=== PATIENT | female | born 1960 | race Caucasian/White ===

== ENCOUNTER 2019-03-18 17:12 | Emergency (ER) | payer OTHER, SELFPAY ==
[2019-03-18 17:51] VITALS: BP 139/60; PULSE 51; RESP 20; TEMP 36.8; O2SAT 99
--- NOTE | 2019-03-18 17:58 | ED.URI ---
HPI - URI/Sore Throat General Chief Complaint: Upper Respiratory Infection Stated Complaint: sore throat/sinus/ear pn Time Seen by Provider: 03/18/19 17:58 Source: patient and RN notes reviewed History of Present Illness HPI Narrative: Patient is a 58-year-old female presents the urgent care with complaints of sinus pressure, congestion for 3 to 4 weeks and bilateral ear pain and sore throat that started last night. Patient has not used anything recently for her symptoms. States that they initially got better and then started to get worse within the last couple days. Patient denies any fever, chills, nausea, vomiting. No other acute complaints. No acute distress noted. Patient read the plan of care. Related Data Home Medications Medication Instructions Recorded Confirmed thyroid (pork) [[place] Thyroid] 90 mg PO DAILY 03/18/19 03/18/19 Allergies Allergy/AdvReac Type Severity Reaction Status Date / Time No Known Allergies Allergy Verified 03/18/19 17:50 Review of Systems Review of Systems: Narrative: CONSTITUTIONAL: Denies fever, chills, or sweats. EYES: Denies visual changes, redness, or discharge. ENT: Reports of rhinorrhea, sinus congestion, mild sore throat and bilateral otalgia CARDIOVASCULAR: Denies chest pain, palpitations, or edema. RESPIRATORY: Denies cough or dyspnea. GASTROINTESTINAL: Denies abdominal pain, nausea, vomiting, or diarrhea. GENITOURINARY: Denies dysuria or hematuria. SKIN: Denies rash or itching. MUSCULOSKELETAL: Denies back pain, joint pain, or myalgia. NEUROLOGIC: Denies headache, numbness, or weakness. All other systems reviewed are negative, except as documented in HPI. [facility] Past Medical History Medical History (Updated 03/18/19 @ 18:20 by SIMI Salas) Larry's disease History of vaginal delivery x 2 Thyroid disease Surgical History Surgical History (Updated 03/12/19 @ 08:08 by Nirali Verdin CMA) History of tonsillectomy History of vaginal hysterectomy [place] teeth removed Family History Family History (Updated 07/24/16 @ 14:32 by DOCTOR UNKNOWN) Father Family history of lung cancer Mother Family history of malignant neoplasm of breast Social History Social History Smoking status: Former smoker Second hand tobacco smoke exposure: No Alcohol intake: current Comments At the time of my signature, I reviewed and agree with the nursing past medical, surgical, social, and family history. There is no relevant family history pertinent to the patient complaint. Exam Narrative: Exam Narrative: GENERAL: This is a well-nourished, well-developed patient, in no apparent distress. HEAD: normocephalic, atraumatic. EYES: PERRL. Sclera clear/white. Vision is grossly intact. EARS: External ears normal, auditory canals clear and without drainage, moderate fluid noted behind bilateral TMs without otitis, TMs normal without perforation. Hearing grossly intact. NOSE: External nose normal with no obvious nasal discharge, mild erythema noted bilateral nares with clear rhinorrhea. THROAT: Mucous membranes moist, posterior pharynx clear. Mild postnasal drainage NECK: Neck supple, non-tender without lymphadenopathy, masses or thyromegaly. CARDIOVASCULAR: Regular rate and rhythm without murmurs, gallops, or rubs. RESPIRATORY: Clear to auscultation. Breath sounds equal bilaterally. No wheezes, rales, or rhonchi. SKIN: warm, intact with no suspicious lesions or rash, good texture and turgor. NEURO: awake, alert, and oriented to person, place and time. There were no obvious focal neurologic abnormalities. EXTREMITIES: No clubbing, cyanosis, or edema. Course Vital Signs Vital signs: Vital Signs Temperature 98.3 F 03/18/19 17:51 Pulse Rate 51 L 03/18/19 17:51 Respiratory Rate 20 03/18/19 17:51 Blood Pressure 139/60 03/18/19 17:51 Pulse Oximetry 99 03/18/19 17:51 Temperature 98.3 F 03/18/19 17:51 Pulse Rate 51 L 03/18/19 17:51 Respi
== END 2019-03-18 18:29 | disposition home or self-care (01) ==
PROVIDERS: Emergency Provider Nurse Practitioner Family
DX: J06.9 Acute upper respiratory infection, unspecified (principal); J32.9 Chronic sinusitis, unspecified; E06.3 Autoimmune thyroiditis
CPT/HCPCS: 99213; G0463

== ENCOUNTER 2019-03-23 10:22 | Emergency (ER) | payer OTHER, SELFPAY ==
[2019-03-23 10:53] VITALS: BP 146/61; PULSE 55; RESP 20; TEMP 37.3; O2SAT 98
--- NOTE | 2019-03-23 11:17 | ED.URI ---
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 Pt states that she has not been feeling well for about 1 month. Pt was seen at on Sunday (5 days ago) for the same complaints and was prescribed Prednisone. Pt refused to have any tests done at the time. She reports a right earache, sinus congestion, and a productive cough, but denies a fever and a wheeze. The patient has been informed that they may have pre-hypertension or Hypertension based on a BP reading in the department. I recommend that the patient call the primary care provider listed on their discharge instructions or a physician of their choice this week to arrange follow up for further evaluation of possible pre-hypertension or Hypertension Onset (ago): month(s) (1) Related Data Home Medications Medication Instructions Recorded Confirmed thyroid (pork) [[place] Thyroid] 90 mg PO DAILY 03/18/19 03/23/19 Allergies Allergy/AdvReac Type Severity Reaction Status Date / Time No Known Allergies Allergy Verified 03/23/19 11:04 Review of Systems Review of Systems: Narrative: General/Constitutional: Denies: weight loss,fever Eyes: Denies: Redness,discharge Ears/Nose/Throat: Reports: sore throat, right earache, sinus congestion; Denies: Epistaxis,ear discharge Respiratory: Reports: productive cough; Denies: Hemoptysis, wheeze Gastrointestinal: Denies: Vomiting, Bleeding-rectal Skin: Denies: Lumps, eruption Neurologic: Denies: Focal Weakness,Sz Hematologic: Denies: Petechiae/Purpura Psychiatric: Denies: Suicidal ideation All systems reviewed & are unremarkable except as noted in HPI and below PMFSH Past Medical History Medical History Larry's disease History of vaginal delivery x 2 Thyroid disease Surgical History Surgical History History of tonsillectomy History of vaginal hysterectomy [place] teeth removed Family History Family History Father Family history of lung cancer Mother Family history of malignant neoplasm of breast Social History Social History Smoking status: Former smoker Second hand tobacco smoke exposure: No Alcohol intake: current Comments No PCP on file. At time of signature, agree with nursing past medical, surgical, social and family history. There is no relevant family history pertinent to the presenting complaint Exam Narrative: Exam Narrative: General Appearance: Well appearing, Well nourished EYE: PERRLA, Conjunctiva clear Ears: Auditory canal normal, TM normal Nose: Rhinorrhea, Mucousal erythema Mouth/Throat: MM moist, Uvula midline, Pharyngeal erythema Neck: Supple, No adenopathy Respiratory: No respiratory distress, Breath sounds equal, Clear to auscultation Cardiovascular: RRR, No JVD Musculoskeletal: Non tender, Normal strength Skin: Warm, Dry Neurological: A&O x3, CN II-XII intact Psychiatric: Normal mood, Normal affect Course Vital Signs Vital signs: Vital Signs Temperature 99.1 F 03/23/19 10:53 Pulse Rate 55 L 03/23/19 10:53 Respiratory Rate 03/23/19 10:53 Blood Pressure 146/61 H 03/23/19 10:53 Pulse Oximetry 98 03/23/19 10:53 Temperature 99.1 F 03/23/19 10:53 Pulse Rate 55 L 03/23/19 10:53 Respiratory Rate 03/23/19 10:53 Blood Pressure 146/61 H 03/23/19 10:53 Pulse Oximetry 98 03/23/19 10:53 MDM - URI/Sore Throat Lab Data Labs: Influenza A Screen Negative Reference Range: Negative Influenza
== END 2019-03-23 11:52 | disposition home or self-care (01) ==
PROVIDERS: Emergency Provider Emergency Medicine
DX: J02.9 Acute pharyngitis, unspecified (principal); Z87.891 Personal history of nicotine dependence
CPT/HCPCS: 87804; 99213; G0463

== ENCOUNTER → 2019-05-03 09:17 | Outpatient (CLI) | payer OTHER, SELFPAY ==
--- NOTE | ~2019-05-03 | DEXA_ITS ---
Bone Density Report Name: Hazel Garcia Age: 58 Sex: Female Ethnicity: White Date of : 1960 Indication: monitoring treatment; prior fracture; hysterectomy; postmenopausal Referring Provider: Soraida Herrera Study: Bone densitometry was performed. Exam Date: May 03, 2019 Accession number: [id number] Bone Density: Region BMD T-score Z-score Classification AP Spine (L1-L4) 1.075 0.3 1.5 Normal Femoral Neck (Left) 0.872 0.2 1.4 Normal Total Hip (Left) 0.944 0.0 0.8 Normal Femoral Neck (Right) 0.941 0.8 2.0 Normal Total Hip (Right) 0.960 0.1 1.0 Normal Total Hip Mean 0.952 0.1 0.9 Normal World Health Organization criteria for BMD impression classify patients as: Normal (T-score at or above -1.0), Osteopenia (T-score between -1.0 and -2.5), or Osteoporosis (T-score at or below -2.5). 10-year Fracture Risk: FRAX not reported because: All T-scores for Spine Total, Hip Total, Femoral Neck at or above -1.0 Treated for osteoporosis Previous Exams: Region Exam Age BMD T-score BMD Change BMD Change Date g/cm2 vs Baseline vs Previous AP Spine(L1-L4) 05/03/2019 58 1.075 0.3 0.014 -0.018 11/11/2016 56 1.094 0.4 0.033* 0.055* 01/23/2014 53 1.039 -0.1 -0.023 -0.023 11/07/2011 51 1.061 0.1 Total Hip(Left) 05/03/2019 58 0.944 0.0 0.017 -0.015 11/11/2016 56 0.959 0.1 0.032* 0.026 01/23/2014 53 0.933 -0.1 0.006 0.006 11/07/2011 51 0.927 -0.1 Total Hip(Right) 05/03/2019 58 0.960 0.1 0.015 -0.012 11/11/2016 56 0.972 0.2 0.027 0.008 01/23/2014 53 0.964 0.2 0.019 0.019 11/07/2011 51 0.945 0.0 *Denotes significance at 95% confidence level, LSC for AP Spine = 0.022 g/cm2, LSC for Total Hip = 0.027 g/cm2 Clinical Information Provided by Patient: Has had a low trauma fracture Is being treated for osteoporosis Has used the following medications: HRT (i.e. estrogen/hormone therapy), Vitamin D, Calcium, mtv Has the following medical conditions: Hysterectomy Patient maximum height was 63.25 Menopause Age: 45 Onset of menses at age 13 Number of children 2 Impression: The patient has normal bone mass. The patient has risk factors, including: previous fracture. No significant bone loss was observed. Discussion: PATIENT UNDER
--- NOTE | ~2019-05-03 | MM_ITS ---
EXAMINATION: MM screening carlos BI w [facility]erson HISTORY: Screening mammogram TECHNIQUE: Craniocaudal and mediolateral oblique 3-D tomosynthesis images were obtained and synthetic 2-D images were generated. CAD analysis was submitted and interpreted. COMPARISON: No prior mammogram is available for comparison at this institution. BREAST PARENCHYMAL COMPOSITION: There are scattered areas of fibroglandular density. FINDINGS: There is stable mild fibroglandular asymmetry. There is no evidence of suspicious mass, c alcification, or architectural distortion to suggest malignancy in either breast. There has been no s uspicious interval change. IMPRESSION: 1. No mammographic evidence of malignancy. 2. Recommend routine screening mammography in one year. BI-RADS Category 2: Benign finding(s). Reviewed, dictated and finalized at location A.
== END ==
PROVIDERS: Visit Provider Student in an Organized Health Care Education/Training Program
DX: Z12.31 Encounter for screening mammogram for malignant neoplasm of breast (principal); Z78.0 Asymptomatic menopausal state
CPT/HCPCS: 77063; 77067; 77080

== ENCOUNTER 2021-04-01 17:12 | Emergency (ER) | payer OTHER, SELFPAY ==
--- NOTE | ~2021-04-01 | XR_ITS ---
EXAMINATION: XR toe 2nd LT min 2V EXAM DATE: 04/01/2021 17:41 INDICATION: Injured left 2nd toe while exercising today. TECHNIQUE: Left 2nd toe frontal, lateral and oblique projections obtained and reviewed. There is n o prior study for comparison. FINDINGS: There is dorsal dislocation of the left 2nd proximal phalanx. There are no acute fractures identified. No radiopaque foreign bodies identified. IMPRESSION: Dorsally dislocated left 2nd proximal phalanx. Reviewed, dictated and finalized at location G. S MARKER
--- NOTE | ~2021-04-01 | XR_ITS ---
EXAMINATION: XR toe 2nd LT min 2V EXAM DATE: 04/01/2021 18:17 INDICATION: post reduction left 2nd toe . TECHNIQUE: Left 2nd toe frontal, lateral and oblique projections obtained and reviewed. Comparison i s made to prior examination from earlier same date. FINDINGS: The left 2nd proximal phalanx has been reduced. There are no acute fractures identified. IMPRESSION: Status post left 2nd toe resection. Reviewed, dictated and finalized at location G. CAR SWITCHMAN
[2021-04-01 17:31] VITALS: BP 129/78; PULSE 62; RESP 18; TEMP 36.6; O2SAT 100
--- NOTE | 2021-04-01 17:58 | ED.GENADULT ---
HPI - General Adult General Chief complaint: Extremity Injury, Lower Stated complaint: lt foot injury Source: patient Mode of arrival: ambulatory Limitations: no limitations History of Present Illness HPI narrative: Patient is a 60-year-old female who presents to the [facility] via POV for evaluation of a left second toe injury that occurred just prior to arrival. Patient reports she was working out when she excellently misstepped causing deformity, decreased range of motion, pain, and swelling to left second toe. Denies using OTC meds for symptoms. Remaining still improves pain. movement and weightbearing worsens pain. Denies rest, ice, elevation, and compression therapy. Related Data Home Medications Medication Instructions Recorded Confirmed thyroid (pork) [[place] Thyroid] 90 mg PO DAILY 03/18/19 03/23/19 levothyroxine 75 mcg PO DAILY 04/01/21 04/01/21 Allergies Allergy/AdvReac Type Severity Reaction Status Date / Time No Known Allergies Allergy Verified 04/01/20 14:35 Review of Systems Review of Systems: Pertinent negatives: fever, chills, sweats, change in appetite, poor p.o. intake, malaise, calf tenderness, skin color changes, rash, warmth, numbness, tingling, loss of sensation, decreased range of motion, weakness, difficulty with ambulation/coordination, nausea, vomiting, lymphadenopathy, shortness of breath, chest pain, heart palpitations, and heart murmur. [facility] Past Medical History Medical History (Updated 04/01/21 @ 18:23 by SIMI Lea, BC) Larry's disease History of vaginal delivery x 2 Thyroid disease Surgical History Surgical History History of tonsillectomy History of vaginal hysterectomy [place] teeth removed Family History Family History Father Family history of lung cancer Mother Family history of malignant neoplasm of breast Social History Social History Smoking status: Former smoker Second hand tobacco smoke exposure: No Alcohol intake: current Comments Spinal stenosis, radiculopathy/sciatica,cauda equina syndrome, sacroiliac pathology, fracture, strain Exam Narrative: GENERAL: Well-appearing, well-nourished, and in no acute distress. HEAD: Normocephalic, atraumatic. NECK: Supple. No Lymphadenopathy or nuchal rigidity appreciated. CHEST: Bilateral lung alejandre are clear to auscultation. No respiratory distress. No evidence of cough or pleuritic cp upon examination. HEART: Regular rate and rhythm. No murmur, gallop, or rub heard. EXTREMITIES: No evidence of cyanosis, hematoma, laceration, abrasion, rash, or puncture. Moderate swelling and pain elicited with passive flexion and extension of left second toe. Left second toe also appears dislocated. No evidence of ligament laxity, effusion, or pain at rest. Pulses palpable at 2+, strength 5/5, and cap refill < 3 seconds in affected extremity. DTRs normal. Slowed gait. Ambulates with left-sided limp. SKIN: Warm, dry, no rash. NEURO: No focal deficits. Alert and oriented x3. SPECIAL OBSERVATIONS: Smiling. Laughing. No evidence of discomfort. Course Course Level of Care: Express Care Visit Vital Signs Vital signs: Vital Signs Temperature 97.9 F 04/01/21 17:31 Pulse Rate 62 04/01/21 17:31 Respiratory Rate 18 04/01/21 17:31 Blood Pressure 129/78 04/01/21 17:31 Pulse Oximetry 100 04/01/21 17:31 Temperature 97.9 F 04/01/21 17:31 Pulse Rate 62 04/01/21 17:31 Respiratory Rate 18 04/01/21 17:31 Blood Pressure 129/78 04/01/21 17:31 Pulse Oximetry 100 04/01/21 17:31 Reviewed Procedures Orthopedic Joint Reduction Joint #1: Orthopedic Joint Reduction Date: 04/01/21 Orthopedic Joint Reduction Time: 18:00 Time Out Performed: Yes Side: left Joint Reduction Loc
== END 2021-04-01 18:40 | disposition home or self-care (01) ==
PROVIDERS: Emergency Provider Nurse Practitioner Family
DX: S93.105A Unspecified dislocation of left toe(s), initial encounter (principal); X58.XXXA Exposure to other specified factors, initial encounter; Z87.891 Personal history of nicotine dependence; E06.3 Autoimmune thyroiditis
CPT/HCPCS: 28665; 73660; 99205; G0463

== ENCOUNTER 2021-05-03 13:45 | Emergency (ER) | payer OTHER, SELFPAY ==
--- NOTE | ~2021-05-03 | XR_ITS ---
EXAMINATION: XR toe 2nd LT min 2V DATE: 05/03/2021 14:40 INDICATION: Left second toe pain post prior dislocation TECHNIQUE: Dorsal plantar, lateral and 2 oblique views of the left second toe were obtained. COMPARISON: 04/01/2021 FINDINGS: Bone alignment is normal. No fracture. Mild osteoarthritis at the first metatarsophalangeal and many of the interphalangeal joints including the second proximal and distal interphalangeal joints. IMPRESSION: Mild polyarticular osteoarthritis at the first metatarsophalangeal and multiple interphalangeal joint s. No acute osseous abnormality. Reviewed, dictated and finalized at location A. IMPRESSION: Mild polyarticular osteoarthritis at the first metatarsophalangeal and multiple interphalangeal joints. No acute osseous abnormality.
[2021-05-03 14:15] VITALS: BP 113/54; PULSE 56; RESP 16; TEMP 36.6; O2SAT 99
--- NOTE | 2021-05-03 14:20 | ED.LOWEXIN ---
HPI - Extremity Injury (Lower) General Chief Complaint: Extremity Injury, Lower Stated Complaint: Lt Foot Pain Time Seen by Provider: 05/03/21 14:59 Source: patient and RN notes reviewed Mode of arrival: ambulatory Limitations: no limitations History of Present Illness HPI Narrative: 60-year-old female presents with concern for her toe that continues to slide out of place . Reports she had it reduced in this clinic approximately 1 month ago after she dislocated it. She reports she has been keeping it taped but occasionally when the tape is not on her toe will dislocate. She reports she manually reduces it. She reports she has reduced the toe this morning. She denies any decreased strength, sensation, range of motion in the digit currently. She denies any open skin, redness, warmth MD complaint: foot injury Related Data Home Medications Medication Instructions Recorded Confirmed thyroid (pork) [[place] Thyroid] 90 mg PO DAILY 03/18/19 05/03/21 levothyroxine 75 mcg PO DAILY 04/01/21 05/03/21 Allergies Allergy/AdvReac Type Severity Reaction Status Date / Time No Known Allergies Allergy Verified 05/03/21 14:26 Review of Systems Review of Systems: CONSTITUTIONAL: Denies malaise, chills, sweats, or fever. SKIN: Denies rash or itching, open skin, laceration, abrasion, redness, warmth, swelling. MUSCULOSKELETAL: Reports second toe of left foot that continues to dislocate NEUROLOGIC: Denies numbness, weakness All systems reviewed & are unremarkable except as noted in HPI and below PMFSH Past Medical History Medical History (Updated 05/03/21 @ 15:10 by Aishwarya Gaines NP) Larry's disease History of vaginal delivery x 2 Thyroid disease Surgical History Surgical History History of tonsillectomy History of vaginal hysterectomy [place] teeth removed Family History Family History Father Family history of lung cancer Mother Family history of malignant neoplasm of breast Social History Social History Smoking status: Former smoker Second hand tobacco smoke exposure: No Alcohol intake: current Comments At time of signature, agree with nursing past medical, surgical, social and family history. There is no relevant family history pertinent to the presenting complaint Exam Narrative: GENERAL: Well-appearing, well-nourished, and in no acute distress. HEAD: Normocephalic, atraumatic. EYES: PERRLA, conjunctivae clear NECK: Supple. CHEST: Speaks in full sentences. No respiratory distress. HEART: Regular rate and rhythm. Normal and equal peripheral pulses. EXTREMITIES: Left foot and all digits have normal strength and sensation, normal range of motion. No edema or ecchymosis. 5/5 strength with [xxx] flexion and extension. Normal sensation with sensitivity to light touch and pain. No point tenderness. No open wounds, no skin tenting, no devitalized tissue or atrophy, no trophic changes, no obvious deformity, alignment normal, nearby joints and structures intact. Distal pulses palpable and equal bilaterally, skin warm, dry, pink. Capillary refill less than 3 seconds. SKIN: Warm, dry, no rash. NEURO: Alert and oriented x3. PSYCH: Normal mood and affect Course Course Emergency Course: Discussed with patient that she can follow-up with her group burner machine regarding further treatment for this problem. Patient is aware of diagnosis, understands and agrees to treatment plan. Anticipatory guidance given. Patient agrees to follow-up as directed and is aware of reasons to seek care at the emergency department. Portions of this record may have been created with voice recognition software Level of Care: Express Care Visit Vital Signs Vital signs: Vital Signs Temperature 97.8 F 05/03/21 14:15 Pulse Rate 56 L 05/03/21 14:15 Respiratory R
== END 2021-05-03 15:15 | disposition home or self-care (01) ==
PROVIDERS: Emergency Provider Nurse Practitioner
DX: M79.675 Pain in left toe(s) (principal); Z87.898 Personal history of other specified conditions; E06.3 Autoimmune thyroiditis
CPT/HCPCS: 73660; 99213; G0463

== ENCOUNTER → 2021-05-30 07:54 | Outpatient (CLI) | payer OTHER, SELFPAY ==
--- NOTE | ~2021-05-30 | DEXA_ITS ---
Bone Density Report Name: TERESA PENN Age: 60 Sex: Female Ethnicity: White Date of : 1960 Indication: monitoring treatment; prior fracture; hysterectomy; postmenopausal Referring Provider: Soraida Herrera Study: Bone densitometry was performed. Exam Date: May 30, 2021 Accession number: [id number] Bone Density: Region BMD T-score Z-score Classification AP Spine (L1-L4) 1.073 0.2 1.6 Normal Femoral Neck (Left) 0.850 0.0 1.3 Normal Total Hip (Left) 0.957 0.1 1.1 Normal Femoral Neck (Right) 0.916 0.6 1.9 Normal Total Hip (Right) 0.951 0.1 1.0 Normal Total Hip Mean 0.954 0.1 1.1 Normal World Health Organization criteria for BMD impression classify patients as: Normal (T-score at or above -1.0), Osteopenia (T-score between -1.0 and -2.5), or Osteoporosis (T-score at or below -2.5). 10-year Fracture Risk: FRAX not reported because: All T-scores for Spine Total, Hip Total, Femoral Neck at or above -1.0 Treated for osteoporosis Previous Exams: Region Exam Age BMD T-score BMD Change BMD Change Date g/cm2 vs Baseline vs Previous AP Spine(L1-L4) 05/30/2021 60 1.073 0.2 0.012 -0.002 05/03/2019 58 1.075 0.3 0.014 -0.018 11/11/2016 56 1.094 0.4 0.033* 0.055* 01/23/2014 53 1.039 -0.1 -0.023 -0.023 11/07/2011 51 1.061 0.1 Total Hip(Left) 05/30/2021 60 0.957 0.1 0.029* 0.012 05/03/2019 58 0.944 0.0 0.017 -0.015 11/11/2016 56 0.959 0.1 0.032* 0.026 01/23/2014 53 0.933 -0.1 0.006 0.006 11/07/2011 51 0.927 -0.1 Total Hip(Right) 05/30/2021 60 0.951 0.1 0.006 -0.009 05/03/2019 58 0.960 0.1 0.015 -0.012 11/11/2016 56 0.972 0.2 0.027 0.008 01/23/2014 53 0.964 0.2 0.019 0.019 11/07/2011 51 0.945 0.0 *Denotes significance at 95% confidence level, LSC for AP Spine = 0.022 g/cm2, LSC for Total Hip = 0.027 g/cm2 Clinical Information Provided by Patient: Has had a low trauma fracture Is being treated for osteoporosis Has used the following medications: HRT (i.e. estrogen/hormone therapy), mtv Has the following medical conditions: Hysterectomy Patient maximum height was 62.25 Menopause Age: 45 Onset of menses at age 13 Number of children 2
== END ==
PROVIDERS: PCP Internal Medicine Endocrinology, Diabetes & Metabolism; Visit Provider Student in an Organized Health Care Education/Training Program
DX: Z78.0 Asymptomatic menopausal state (principal)
CPT/HCPCS: 77080

== ENCOUNTER → 2021-07-14 14:04 | Outpatient (CLI) | payer OTHER, SELFPAY ==
--- NOTE | ~2021-07-14 | MM_ITS ---
EXAMINATION: MM screening carlos BI w [facility] HISTORY: Screening mammogram TECHNIQUE: Craniocaudal and mediolateral oblique 3-D tomosynthesis images were obtained and synthetic 2-D images were generated. CAD analysis was submitted and interpreted. COMPARISON: 05/03/2019, 11/11/2016, 10/27/2015 bilateral screening mammogram examinations BREAST PARENCHYMAL COMPOSITION: There are scattered areas of fibroglandular density. FINDINGS: Stable fibroglandular asymmetry post bilateral reduction mammoplasty. There is no evidence of suspicious mass, calcification, or architectural distortion to suggest malignancy in either breast . There has been no suspicious interval change. IMPRESSION: 1. No mammographic evidence of malignancy. 2. Recommend routine screening mammography in one year. BI-RADS Category 2: Benign finding(s). Reviewed, dictated and finalized at location A.
== END ==
PROVIDERS: PCP Student in an Organized Health Care Education/Training Program; Visit Provider Student in an Organized Health Care Education/Training Program
DX: Z12.31 Encounter for screening mammogram for malignant neoplasm of breast (principal)
CPT/HCPCS: 77063; 77067

== ENCOUNTER 2022-02-18 11:52 | Emergency (ER) | payer OTHER, SELFPAY ==
[2022-02-18 12:18] VITALS: BP 122/78; PULSE 73; RESP 18; TEMP 36.7; O2SAT 98
--- NOTE | 2022-02-18 12:36 | ED.GENADULT ---
HPI - General Adult General Chief complaint: Upper Respiratory Infection Stated complaint: cold /flu symptoms Time Seen by Provider: 02/18/22 12:36 Source: patient Mode of arrival: ambulatory Limitations: no limitations History of Present Illness HPI narrative: 7-year-old female patient presents to the [facility] with complaints of cold and flu symptoms for the past week and a half. Patient states she has continues to have a scratchy throat, congestion, runny nose, headache. Denies any fevers, body aches or chills. Patient states she did test for COVID on but did test negative. Patient states she is up-to-date on influenza and COVID vaccines. Patient denies any chest pain, shortness of breath. Patient states she does have slight cough. Patient is a former smoker quit about 15 years ago. Patient states she has been taking whly-wka-lqndvyw [place] cold and flu to help with symptoms. Related Data Home Medications Medication Instructions Recorded Confirmed thyroid (pork) 60 mg tablet 90 mg PO DAILY 03/18/19 02/18/22 ([place] Thyroid) levothyroxine 75 mcg tablet 75 mcg PO DAILY 04/01/21 02/18/22 Allergies Allergy/AdvReac Type Severity Reaction Status Date / Time No Known Allergies Allergy Verified 02/18/22 12:23 Review of Systems Review of Systems: CONSTITUTIONAL: Denies fever, chills, or sweats. EYES: Denies visual changes, redness, or discharge. ENT: Positive rhinorrhea, congestion, sore throat, denies otalgia. CARDIOVASCULAR: Denies chest pain, palpitations, or edema. RESPIRATORY: positive cough denies dyspnea. GASTROINTESTINAL: Denies abdominal pain, nausea, vomiting, or diarrhea. GENITOURINARY: Denies dysuria or hematuria. SKIN: Denies rash or itching. MUSCULOSKELETAL: Denies back pain, joint pain, or myalgia. NEUROLOGIC: Denies headache, numbness, or weakness. PSYCHIATRIC: Denies anxiety or depression. [facility] Past Medical History Medical History (Updated 02/18/22 @ 12:57 by SIMI Maldonado) Larry's disease History of vaginal delivery x 2 Thyroid disease Surgical History Surgical History History of tonsillectomy History of vaginal hysterectomy [place] teeth removed Family History Family History Father Family history of lung cancer Mother Family history of malignant neoplasm of breast Social History Social History Smoking status: Former smoker Second hand tobacco smoke exposure: No Alcohol intake: current Comments At the time of my signature I agree with nursing past medical history, surgical, social, and family history. There is no relevant family history pertinent to the presenting complaint. Exam Narrative: GENERAL: Well-appearing, well-nourished, and in no acute distress. HEAD: Normocephalic, atraumatic. EYES: PERRLA and EOMI. ENT: Nares with erythema and edema noted bilaterally, no rhinorrhea or epistaxis. Mucous membranes moist. posterior pharynx with erythema. No tonsillar enlargement, no exudates or lesions present. Bilateral TMs are clear no erythema 4 by the canal NECK: Supple. slight right-sided lymphadenopathy CHEST: Clear to auscultation. No respiratory distress. HEART: Regular rate and rhythm. No murmur heard. Normal peripheral pulses. ABDOMEN: Soft, nontender, nondistended, normal active bowel sounds. EXTREMITIES: Normal range of motion. No edema. SKIN: Warm, dry, no rash. NEURO: No focal deficits. Alert and oriented x3. Course Course Level of Care: Express Care Visit Reevaluation(s) Reevaluation #1: re-evaluated patient notified her that her strep test today is negative. Discussed with patient most likely has a virus that has left some inflammation drainage. We go will go ahead and treat her symptomatically today and discharge her home with an albuterol inhaler, Marie
== END 2022-02-18 13:03 | disposition home or self-care (01) ==
PROVIDERS: Emergency Provider Nurse Practitioner Family; PCP Family Medicine
DX: J06.9 Acute upper respiratory infection, unspecified (principal); R05.9 Cough, unspecified; Z87.891 Personal history of nicotine dependence
CPT/HCPCS: 87081; 87880; 99213; G0463

== ENCOUNTER 2022-08-24 15:19 | Emergency (ER) | payer OTHER, SELFPAY ==
--- NOTE | ~2022-08-24 | XR_ITS ---
EXAMINATION: XR foot RT min 3V DATE: 08/24/2022 15:44 INDICATION: Lateral right foot pain. TECHNIQUE: 4 views of right foot were obtained. COMPARISON: Right ankle radiographs 12/21/2009 FINDINGS: There is moderate hallux valgus. No fracture. There is mild osteoarthritis of first metatar sophalangeal joint. There is an enthesophyte at posterior aspect of calcaneal tuberosity. IMPRESSION: 1. Moderate hallux valgus. 2. Mild osteoarthrosis of first metatarsophalangeal joint. Reviewed, dictated and finalized at location E.
[2022-08-24 15:29] VITALS: BP 123/73; PULSE 60; RESP 18; TEMP 36.4; O2SAT 98
--- NOTE | 2022-08-24 15:31 | ED.GENADULT ---
HPI - General Adult General Chief complaint: Extremity Injury, Lower Stated complaint: rt foot pain Time Seen by Provider: 08/24/22 15:31 Source: patient, RN notes reviewed and old records reviewed Mode of arrival: ambulatory Limitations: no limitations History of Present Illness HPI narrative: 62 Year old female presents to the [facility] with complaints of right lateral foot pain since Sunday Has taken Tylenol. Denies any injury. No erythema, ecchymosis or swelling noted. Related Data Home Medications Medication Instructions Recorded Confirmed thyroid (pork) 60 mg tablet 90 mg PO DAILY 03/18/19 08/24/22 ([place] Thyroid) levothyroxine 75 mcg tablet 75 mcg PO DAILY 04/01/21 08/24/22 Allergies Allergy/AdvReac Type Severity Reaction Status Date / Time No Known Allergies Allergy Verified 08/24/22 15:33 Review of Systems Review of Systems: All systems reviewed & are unremarkable except as noted in HPI and below Constitutional: Constitutional: Reports no additional constitutional complaints Eyes: Eyes: Reports no additional eye complaints ENT: Reports system reviewed and no additional complaints, except as documented Cardiovascular: Cardiovascular: Reports no additional cardiovascular complaints, Denies chest pain and Denies dyspnea Respiratory: Respiratory: Reports no additional respiratory complaints, Denies chest congestion, Denies cough and Denies dyspnea Gastrointestinal: Gastrointestinal: Reports no additional gastrointestinal complaints, Denies abdominal pain, Denies nausea and Denies vomiting Musculoskeletal: Musculoskeletal: Reports as per HPI Integumentary/Breasts: Skin/Breast: Reports system reviewed and no additional complaints, except as docu Neurologic: Reports system reviewed and no additional complaints, except as documented Psychiatric: Psychiatric: Reports no additional psychiatric complaints Allergic/Immunologic: Allergic/Immunologic: Reports no additional allergic/immunologic complaints [facility] Past Medical History Medical History Larry's disease History of vaginal delivery x 2 Thyroid disease Surgical History Surgical History H/O foot surgery History of tonsillectomy History of vaginal hysterectomy [place] teeth removed Family History Family History Father Family history of lung cancer Mother Family history of malignant neoplasm of breast Social History Social History (Reviewed 08/24/22 @ 19:09 by QUIANA Santana Smoking status: Former smoker Second hand tobacco smoke exposure: No Alcohol intake: current Lack of Transportation: No Lack of Food: Never True Current Housing: I Have Housing Concerned About Future Housing: No Difficulty Paying Gas/Electric Bills: No Difficulty Paying for Meds: No Currently Unemployed: No Education: Associate Degree Difficulty w/ Childcare or Family Care: No Comments At the time of my signature, I reviewed and agree with the nursing past medical, surgical, social, and family history. There is no relevant family history pertinent to the patient complaint. Exam Const: General: cooperative, healthy appearing, comfortable, no acute distress, well developed, alert and well nourished Nutritional Appearance: well nourished Orientation/consciousness: patient oriented x3 Limitations: no limitations HENMT: Head: normal to inspection Ears: hearing grossly normal bilaterally and external ears normal Face/Nose/Sinus: Normal external nose present, Normal nares present, Normal nasal mucous membranes and turbinates present and normal facial exam Face and sinus: normal facial exam Eyes: General: appearance normal, both eyes and all related structures Alignment and Position: alignment normal Periorbital: periorbital findings normal Pupils: Equal, round
== END 2022-08-24 16:00 | disposition home or self-care (01) ==
PROVIDERS: Emergency Provider Nurse Practitioner
DX: M79.671 Pain in right foot (principal); Z87.891 Personal history of nicotine dependence; E06.3 Autoimmune thyroiditis; E03.9 Hypothyroidism, unspecified
CPT/HCPCS: 73630; 99213; G0463

== ENCOUNTER 2024-07-18 07:56 | Outpatient (CLI) | payer OTHER, SELFPAY ==
--- NOTE | ~2024-07-18 | MM_ITS ---
EXAMINATION: MM screening [facility] BI w [facility] INDICATION: Asymptomatic, referred for screening mammogram COMPARISON: 07/14/2021 through 08/01/2014 TECHNIQUE: Digital Breast Tomosynthesis CC, MLO views of Both breasts were obtained with computer-ai ded detection to assist in interpretation of the study. FINDINGS: There are scattered areas of fibroglandular density. There is an asymmetry seen on the MLO view in the Inferior right breast at middle depth. There is a c ircumscribed mass seen in the inferior medial left breast at anterior depth. Elsewhere, there are no mammographic features of malignancy. IMPRESSION: 1. Right breast Asymmetry. 2. Left breast mass. RECOMMENDATION: Bilateral breast Diagnostic mammogram with true lateral, appropriate spot compression views and an ul trasound if needed. BI-RADS 0, INCOMPLETE, NEEDS ADDITIONAL IMAGING EVALUATION Reviewed, dictated and finalized at location B. IMPRESSION: 1. Right breast Asymmetry. 2. Left breast mass. RECOMMENDATION: Bilateral breast Diagnostic mammogram with true lateral, appropriate spot compr ession views and an ultrasound if needed. BI-RADS 0, INCOMPLETE, NEEDS ADDITIONAL IMAGING EVALUATION
--- OUTSIDE RECORDS SUMMARY | 2024-07-18 08:01 | XMS_ITS | Referral Summary ---
Author Organization [facility] [address] [place] [id number] Care Team Providers Care Occupational Health Professional Name Role Phone Do Duron MD Primary Care Provider [phone] Encounters Date Type Department Care Team Description 07/09/2024 Results Follow-Up [facility] [address] [address] Janette Contreras MD Vitamin D 25 hydroxy, TSH, Lipid panel 07/04/2024 Orders Only [facility] [address] [address] Janette Contreras MD 07/02/2024 3:00 PM CDT Office Visit [facility] [address] [address] Janette Contreras MD 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); Vitamin D deficiency from Last 3 Months Allergies No known active allergies Medications multivitamin tabletIndicatio ns:Vitamin Deficiency Prevention Take 1 tablet by mouth Active estradioL (ESTRACE) 2 mg tablet Take 1 tablet (2 mg total) by mouth daily 90 tablet 2 10/21/19 20 Active levothyroxine (SYNTHROID) 50 mcg tabletIndicatio ns: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 Take 1 tablet by mouth daily but 2 tablets on Sundays 100 tablet 3 07/11/19 25 Active thyroid ([place] Thyroid) 60 mg tabletIndicatio ns: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 Take 1 tablet (60 mg total) by mouth daily 90 tablet 3 07/11/19 25 Active acetaminophen (TYLENOL) 500 mg tablet Take 2 tablets (1,000 mg total) by mouth every 6 (six) hours as needed 025 Discontinued fluticasone propionate (FLONASE) 50 mcg/actuation nasal spray SHAKE LIQUID AND USE 1 SPRAY IN EACH NOSTRIL DAILY 02/18/19 025 Discontinued(Ot her) [place] Thyroid 60 mg tabletIndicatio ns: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 TAKE 1 TABLET DAILY 90 tablet 3 06/14/19 025 Discontinued(Re order) levothyroxine (SYNTHROID) 50 mcg tabletIndicatio ns: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 TAKE 1 TABLET DAILY 90 tablet 3 06/14/19 025 Discontinued(Re order) levothyroxine (SYNTHROID) 50 mcg tabletIndicatio ns: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 Take 1 tablet by mouth daily but 2 tablets on Sundays 100 tablet 3 07/10/19 025 Discontinued(Re order) thyroid ([place] Thyroid) 60 mg tabletIndicatio ns: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 Take 1 tablet (60 mg total) by mouth daily 90 tablet 3 07/10/19 025 Discontinued(Re order) Active Problems Problem Noted Date Diagnosed Date Sleep disturbance 07/05/2023 Assessment & Plan (07/05/2023 10:22 AM CDT): Sleep hygiene Relaxation, techniques , mediation , advised. 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 Assessment & Plan (07/05/2023 10:19 AM CDT): Probably overeplaced Update TFTs Adjust dose of armour / LT4 accordingly Assessment & Plan (04/27/2022 5:12 PM CDT): TSH was requested Will adjust dose of levothyroxine and or [place] thyroid accordingly Assessment & Plan (10/25/2021 3:43 PM CDT): Recheck TSH, free T4 and free T3 I emphasized to the patient the importance of taking her medication regularly Will make adjustment, if indicated Follow-up in in 6 months Assessment & Plan (10/26/2020 3:39 PM CDT): Thyroid function tests, including TSH and free T4 were requested Will adjust dose of [place], if indicated Assessment & Plan (10/21/2019 3:34 PM CDT): Continue [place] to current dose Check TSH Assessment & Plan (11/28/2018 3:00 PM CDT): Will check TSH and free T4 Will adjust dose of [place], acccordingly . If there is a need to make changes, will recheck levels in 2-3 months. Instructions to patient on taking medication properly Assessment & Plan (09/04/2017 9:41 AM CDT): Your goal of treatment is to keep TSH , T3 and T4 within normal range. . Will recheck thyroid function tests and will advised on adjustment to current dose of [place]. Assessment & Plan (08/21/2016 9:50 AM CDT): Check TSH, free T4 Will try [place] , as per patient request Recheck levels in 3 months. Postmenopausal 08/21/2016 Assessment & Plan (10/26/2020 3:39 PM CDT): Continue HRT with Estrace Patient needs to to schedule a mammogram Assessment & Plan (10/21/2019 3:35 PM CDT): Continue HRT Try to lower estradiol to 1 mg daily Assessment & Plan (08/21/2016 9:49 AM CDT): Will request bone density Hypothyroidism 06/28/2013 Overview (05/19/2016): HYPOTHYROIDISM NOS Assessment & Plan (04/08/2019 4:54 PM [employer] INCIDENT RESP[employer]DER): Check TFT Adjust dose of [place] accordingly Anemia 06/28/2013 Overview (05/19/2016): ANEMIA NOS Lymphocytic thyroiditis 06/28/2013 Overview (05/19/2016): CHR LYMPHOCYT THYROIDIT Metabolic bone disease 10/31/2011 Overview (05/19/2016): Bone disease, metabolic Resolved Problems Problem Noted Date Diagnosed Date Resolved Date Tobacco dependence syndrome 10/31/2011 09/04/2017 Overview (05/19/2016): Tobacco use disorder Social History Tobacco Use Types Packs/Day Years Used Date Smoking Tobacco: Former Smokeless Tobacco: Never Alcohol Use Standard Drinks/Week Comments Yes 0 (1 standard drink = 0.6 oz pur e alcohol) PHQ-2 Answer Date Recorded PHQ-2 Total Score (If total score is 3 or more points, staff should administer the PHQ-9) 0 10/25/2021 Comments Unknown Sex and Gender Information Value Date Recorded Sex Assigned at Not on file Legal Sex Female 3:05 AM [employer] Gender Identity Not on file Sexual Orientation Not on file Last Filed Vital Signs Vital Sign Reading Time Taken Comments Blood Pressure 102/60 07/02/2024 3:01 PM CDT Pulse 74 07/02/2024 3:01 PM CDT Temperature 36.1 C (97 F) 10/29/2020 10:55 AM CDT Respiratory Rate 20 07/02/2024 3:01 PM CDT Oxygen Saturation 98% 10/29/2020 12: 37 PM CDT Inhaled Oxygen Concentration - - Weight 65.7 kg (144 lb 12.8 oz) 07/02/2024 3:01 PM CDT Height 157.5 cm (5' 2) 07/02/2024 3:01 PM CDT Body Mass Index 26.48 07/02/2024 3:01 PM CDT Plan of Treatment Not on file Procedures Procedure Name Priority Date/Time Associated Diagnosis Comments T3, FREE Routine 07/04/2024 3:18 PM CDT TSH Routine 07/04/2024 3:18 PM CDT T4, FREE Routine 07/04/2024 3:18 PM CDT VITAMIN D 25 HYDROXY Routine 07/04/2024 3:18 PM CDT LIPID PANEL Routine 07/04/2024 3:18 PM CDT from Last 3 Months Results * Vitamin D 25 hydroxy (07/04/2024 3:18 PM CDT) [facility] Vitamin D, 25-Hydroxy 50.0 30.0 - 100.0 ng/mL [facility] - 01 Comment: Vitamin D deficiency has been defined by the Royal of Medicine and an Endocrine Society practice guideline as a level of serum 25-OH vitamin D less than 20 ng/mL (1,2). The Endocrine Society went on to further define vitamin D insufficiency as a level between 21 and 29 ng/mL (2). 1. IOM (Royal of Medicine). 2010. Dietary reference intakes for calcium and D. [place]: The National Academies Press. 2. Leonard LOFTON, Maurice HUIZAR, Shagufta ROCHA, et al. Evaluation, treatment, and prevention of vitamin D deficiency: an Endocrine Society clinical practice guideline. JCEM. 2010; 96(7):1911-30. 07/04/2024 3:18 PM CDT 07/04/2024 Narrative [facility] - 07/05/2024 7:09 AM CDT Performed at: [address] [place] [id number] Supervisor Of Communications: Dickson Higgins PhD, Phone: [phone] Janette Contreras MD LAB BLOOD ORDERABLES Final Resul t Performing Organization Address [facility] de Phone Number [facility] - 01 * T3, free (07/04/2024 3:18 PM CDT) Triiodothyronin e,Free,Serum 2.9 2.0 - 4.4 pg/mL [facility] - 01 07/04/2024 3:18 PM CDT 07/04/2024 Narrative [facility] - 07/05/2024 8:11 AM CDT Performed at: [address] [place] [id number] Supervisor Of Communications: Dickson Higgins PhD, Phone: [phone] us Janette Contreras MD LAB BLOOD ORDERABLES Final Resul t Performing Organization Address [facility] Phone Number [facility] - * (ABNORMAL) TSH (07/04/2024 3:18 PM CDT) TSH 7.650(H) 0.450 - 4.500 uIU/mL [facility] - 01 07/04/2024 3:18 PM CDT 07/04/2024 Narrative [facility] - 07/05/2024 8:11 AM CDT Performed at: [facility] [address] [id number] Supervisor Of Communications: Dickson Higgins PhD, Phone: [phone] us Janette Contreras MD LAB BLOOD ORDERABLES Final Resul t Performing Organization Address [facility] de Phone Number [facility] - 01 * T4, free (07/04/2024 3:18 PM CDT) T4,Free(Direct) 1.05 0.82 - 1.77 ng/dL [facility] - 01 07/04/2024 3:18 PM CDT 07/04/2024 Narrative [facility] - 07/05/2024 8:11 AM CDT Performed at: [address] [id number] Supervisor Of Communications: Dickson Higgins PhD, Phone: [phone] Janette Contreras MD LAB BLOOD ORDERABLES Final Resul t Performing Organization Address [facility] Co de Phone Number [facility] - * (ABNORMAL) Lipid panel (07/04/2024 3:18 PM CDT) Cholesterol 210(H) 100 - 199 mg/dL [facility] - 01 Triglycerides 210(H) 0 - 149 mg/dL [facility] - 01 HDL Cholesterol 52 >39 mg/dL [facility] - 01 VLDL 37 5 - 40 mg/dL [facility] - 01 LDL, calculated 121(H) 0 - 99 mg/dL [facility] - 01 07/04/2024 3:18 PM CDT 07/04/2024 Narrative [facility] - 07/05/2024 7:09 AM CDT Performed at: [address] [id number] Supervisor Of Communications: Dickson Higgins PhD, Phone: [phone] Janette Contreras MD LAB BLOOD ORDERABLES Final Resul t [facility] - 01 from Last 3 Months Insurance [facility] [employer] [employer] [facility] [employer] [place] [address] [facility] Care Teams Occupational Health Professional Relationship Specialty Start Date End Date Do Duron MD [address] [address] PCP - General 12/21/15
--- OUTSIDE RECORDS SUMMARY | 2024-07-18 08:01 | XMS_ITS | Encounter Summary ---
Author Organization [facility] Address [address] [place] [address] Care Team Providers Care Printing Mechanist Name Role Phone Unavailable Primary Care Provider Unavailabl e Encounter Details Date Type Department Care Team (Late st Contact Info) Description 04/27/2021 Lab Requisition [facility] [address] [facility] [place] [id number] Binh Nguyen MD [address] [place] [address] Social History Tobacco Use Types Packs/Day Years Used Date Smoking Tobacco: Never Assessed Comments Unknown Sex and Gender Information Value Date Recorded Sex Assigned at Not on file Legal Sex Female 2:52 PM CDT Gender Identity Not on file Sexual Orientation Not on file documented as of this encounter Plan of Treatment Not on file documented as of this encounter Procedures Procedure Name Priority Date/Time Associated Diagnosis Comments DERMATOPATHOLOGY Routine 04/26/2021 12:0 0 AM CDT documented in this encounter Results * DERMATOPATHOLOGY (04/26/2021 12:00 AM CDT) Case Report Dermatopathology Report Case: [id number] Authorizing Provider: Binh Nguyen MD Collected: 04/26/2021 12:00 AM Ordering Location: [facility] Received: 04/27/2021 03:09 PM Pathologist: Jessy Neville MD Specimen: Skin, left lateral cheek 2 3:52 PM CDT DERMATOPATHOLOGY LABORATORY Final Diagnosis Specimen A. 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 Path # [id number]. 2 3:52 PM CDT DERMATOPATHOLOGY LABORATORY Gross Description Specimen A: Received is one formalin filled container labeled with the patient's name and designated left lateral cheek. The specimen consists of a shave biopsy measuring [id number]. Jar 0. 2 3:52 PM CDT DERMATOPATHOLOGY LABORATORY Microscopic Description Specimen A. SKIN, left lateral cheek: There is alternating orthokeratosis and parakeratosis. Along the undersurface of the epidermis, there are buds of atypical keratinocytes in a disorderly arrangement. There is prominent pigmentation in some of the keratinocytes. Sections show abundant melanin within melanophages around the superficial vascular plexus. The number of melanocytes, highlighted by MART-1/Melan-A immunohistochemical staining, is only mildly increased. The lesion is inflamed. COMMENT: If this specimen is sampled from a larger lesion, these findings may not be office services representative of the entire lesion. Clinicopathologic correlation is recommended. 2 3:52 PM CDT DERMATOPATHOLOGY LABORATORY Disclaimer An external and internal positive and negative controls are appropriate for the histochemical, immunohistochemical and immunofluorescence stain(s) in this case (if any), except where stated explicitly. The performance characteristics of the stain(s) cited in this report were developed and its performance characteristic determined by the Dermatopathology Laboratory at [facility], directed by Dr. Danny Orellana. These tests need not be, and therefore are not, approved by the [place] Food and Drug Administration. The tests are used for clinical purposes. Billing Codes Specimen Charges Stain Charges 21747 1 02256 1 2 3:52 PM CDT DERMATOPATHOLOGY LABORATORY Embedded Images 2 3:52 PM CDT DERMATOPATHOLOGY LABORATORY Pathology/Cytolog y TISSUE SPECIMEN FROM SKIN / Unknown 04/26/2021 04/27/2021 3:09 PM CDT us Binh Nguyen MD LAB - PATHOLOGY/CYTOLOGY ORDER AKSHAT Final Result DERMATOPATHOLOGY LABORATORY [facility] - Department of Dermatology [address], [address] [phone] documented in this encounter Visit Diagnoses Not on filedocumented in this encounter
--- OUTSIDE RECORDS SUMMARY | 2024-07-18 08:01 | XMS_ITS | Clinical Summary ---
Author Organization [facility] Address [address] [place] [address] Care Team Providers Care Sales Support Manager Name Role Phone Unavailable Primary Care Provider Unavailabl e Source Comments [facility],non-[facility] Affiliates and Associated Physician Practices is amultiple site organization consisting of ambulatory clinics and hospital sitesin [place], [place], [place] and [place]. This disclosure is being madepursuant to the Care Everywhere program and may not contain all information available regarding this patient. Last updated 17.[facility] Social History Tobacco Use Types Packs/Day Years Used Date Smoking Tobacco: Never Assessed Comments Unknown Sex and Gender Information Value Date Recorded Sex Assigned at Not on file Legal Sex Female 2:52 PM CDT Gender Identity Not on file Sexual Orientation Not on file Plan of Treatment Health Maintenance Due Date Last Done Comments COLOGUARD (AGES 45-75) - COL ON CA SCREENING 1961 COLON MONITORING 1961 COLONOSCOPY - COLON CA SCREENING 1961 CT COLONOGRAPHY - COLON CA SCREENING 1961 Colorectal Cancer Screening 1961 FIT - COLON CA SCREENING 1961 FLEX SIG - COLON CA SCREENING 1961 LIPID TESTING 1961 MAMMOGRAM 1961 HIV SCREENING 1976 HEPATITIS C SCREENING 06/19/1979 DTAP/TDAP/TD VACCINES (1 - Tdap) 1980 PNEUMOCOCCAL VACCINE 50+ (1 of 1 - PCV) 06/24/2011 ZOSTER VACCINE (1 of 2) 06/24/2011 COVID-19 VACCINE ( - 2023-2 5 season) 2023 DEPRESSION SCREENING 02/13/2024 INFLUENZA VACCINE (Season Ended) 2024 Respiratory Syncytial Virus (RSV) Vaccine Pt: or over 60 yrs (1 - 1-dose 75+ series) 2036 HEPATITIS B VACCINE Aged Out No longe r eligible based on patient's age to complete this topic HIB VACCINE Aged Out No longer eligi ble based on patient's age to complete this topic HPV VACCINE Aged Out No longer eligi ble based on patient's age to complete this topic MENINGOCOCCAL (Group B) VACC INE SHARED DECISION-MAKING Aged Out No longer eligibl e based on patient's age to complete this topic MENINGOCOCCAL GROUPS A/C/Y/W VACCINE Aged Out No longer eligible b ased on patient's age to complete this topic Insurance [facility]
--- OUTSIDE RECORDS SUMMARY | 2024-07-18 08:01 | XMS_ITS | Data Portability ---
Author Organization [place] - S [employer], Main Office Address [address] [place] [address] Care Team Providers Care Fisheries Specialist Name Role Phone JACIEL LOVELACE Primary Care Provider [phone] Assessment Encounter Date Assessment Date Assessment LastModified by Organization Details LastModified Time 01/08/2023 01/08/2023 62 yo F with - WELL ADULT VISIT - ANXIETY - CHRONIC INSOMNIA - HYPOTHYROIDISM - VIT D DEFICIENCY - EX-SMOKER D/w pt in detail about her conditions and further plan of care. Will do routine labs. Pt declined for cxr. Meds as directed. Advised pt to talk with close friend/family member on a regular basis. Educated about alarming symptoms to monitor at home and call us back Or get checked in ED. Pt verbalized understanding it. Diet and exercise explained in detail. BP diary education given and call us if any concerns. Cont f/u with Endo at [facility] as per schedule. Offered to refer to counsellor; but pt declined. HM: WWE - 07/04, normal as per pt. Cont f/u with Gyne as per schedule. Mammo - 07/04, normal as per pt. Colonoscopy - 9 yrs ago. Normal as per pt. DEXA - 2021, normal as er pt. Flu - Pt declined. Tdap - Pt declined. Pneumo - Pt declined. Shingrix - Pt had 2 doses. F/u in 2 weeks. Annual labs in 01/05. [email or web address] Not available 01/08/2023 15:56:56 01/31/2023 01/31/2023 62 yo F with - HLD, new - ANXIETY - CHRONIC INSOMNIA - HYPOTHYROIDISM - VIT D DEFICIENCY - EX-SMOKER Annual labs: 01/26/23. D/w pt in detail about her conditions, recent labs and further plan of care. Advised pt to talk with her Endo about her TSH result. Pt doesn't want me to do any dose change. Meds as directed. Advised pt to talk with close friend/family member on a regular basis. Educated about alarming symptoms to monitor at home and call us back Or get checked in ED. Pt verbalized understanding it. Diet and exercise explained in detail. BP diary education given and call us if any concerns. Cont f/u with Endo at [facility] as per schedule. Offered to refer to counsellor; but pt declined. HM: WWE - 07/04, normal as per pt. Cont f/u with Gyne as per schedule. Mammo - 07/04, normal as per pt. Colonoscopy - 9 yrs ago. Normal as per pt. DEXA - 2021, normal as er pt. Flu - Pt declined. Tdap - Pt declined. Pneumo - Pt declined. Shingrix - Pt had 2 doses. F/u in 3 months. Lipids in 05/05. Annual labs in 01/05. Not available 01/31/2023 17:09:29 Plan of Treatment Reminders Order Date Submit Date Provider Last Modified By Organization Details Last Modified Time Details Appointments None recorded. Lab lipid panel, serum 2022 024 [email or web address] [facility], [address], [place], [address], 4 08:05:33 vitamin D, 25-hydroxy, total, serum 2022 023 [facility], [address], [place], [address], 3 12:03:36 HbA1c (hemoglobin A1c), blood 2022 023 [email or web address] [facility] ([facility]), [address] [place], [address], 3 12:03:36 CBC w/ auto diff 2022 023 [email or web address] [facility], [address], [place], [address], 10:40:57 CMP, serum or plasma 2022 [email or web address] [facility], [address], [place], [address], 12:03:35 lipid panel, serum 2022 023 [email or web address] [facility], [address], [place], [address], 12:03:35 TSH, serum, reflex free T4 2022 023 [email or web address] [facility], [address], [place], [address], 12:03:35 urinalysis complete, reflex culture 2022 [email or web address] [facility], [address], [place], [address], 12:03:36 Referral None recorded. Procedures None recorded. Surgeries None recorded. Imaging None recorded. Medication Orders escitalopra m 5 mg tablet 2022 [facility] #[id number], [address], [place], [id number], 17:04:52 atorvastati n 10 mg tablet 2022 023 [facility] #[id number], [address], [place], [id number], 17:04:55 trazodone 50 mg tablet 2022 023 [facility], [address], [place], [id number], 17:04:56 escitalopra m 5 mg tablet 2022 023 [facility] #56970, [address], [place], [id number], 3 15:49:28 trazodone 50 mg tablet 2022 023 [facility], [address], [place], [id number], 3 15:49:38 Patient TargetsNo targets recorded. Patient InstructionsNo instructions recorded. Reason for Referral None Reported. Results Created Date Observation Date Name Description Value Unit Range Abnormal Flag Note LastModifiedBy Organization Detail LastModifiedTime Result Notes None recorded. Problems Name Problem SNOMED Code Status Onset Date Resolution Date Notes Provider Name and Address Organization Details Recorded Time Pain of joint of hand 936774374 Completed Not Available [facility] 3 08:08:42 Lateral epicondyli tis 335355450 Completed Not Available [facility] 3 08:08:42 Family history of Cardiovasc ular disease 193908220 Active 2017 Not Available [facility] 3 08:08:42 Hypothyroi dism 91909925 Active 2017 Not Available [facility] 3 08:08:42 Family history of breast cancer 237366993 Active 2017 Not Available [facility] 3 08:08:42 Seasonal allergy 227852489 Completed Not Available [facility] 3 08:08:42 Posterior rhinorrhea 20578923 Completed Not Available [facility] 3 08:08:43 Vitamin D deficiency 43493361 Active 2022 Jaciel Lovelace MD [address] [address], [place], [address] , [employer] [facility] [employer] [facility] 3 15:42:52 Ex-smoker 2752330 Active 2022 Jaciel Lovelace MD [address], [place], [address] , [employer] [facility] [employer] 3 15:43:49 Anxiety disorder 377727106 Active 2022 Jaciel Lovelace MD [address] [facility], [address], [address] , [employer] [facility] [employer] 3 15:46:39 Chronic insomnia 505177807 Active 2022 Jaciel Lovelace MD [address] [facility], [address], [address] , [employer] [facility] [employer] 3 15:46:55 Hyperlipid emia 51052464 Active 2022 Jaciel Lovelcae MD [address] [facility], [address], [address] , [employer] [facility] [employer] 3 17:02:43 Altered bowel function 33063418 Active 2023 Jaciel Lovelace MD [address] [facility], [address], [address] , [employer] [facility] [employer] 4 10:23:32 Problem Notes None recorded. Procedures Surgical History Date Name Laterality Status Provider Name and Address Organization Details Recorded Time 02/12/19 12 Removal of tonsils completed Dayami Motta [place] [employer] [facility] [employer] 01/08/2023 15:34:46 02/12/19 12 Hysterectomy completed Dayami Motta [place] [employer] [facility] [employer] 01/08/2023 15:35:38 02/12/19 02 Breast reduction completed Dayami Motta [place] [employer] [facility] [employer] 01/08/2023 15:35:09 Imaging Results None recorded. Procedure Notes None recorded. Medical Equipment None Reported. Allergies No known drug allergies Medications Name Sig Start Date Stop Date Status Note LastModified by Organization Details LastModified Time amoxicillin 500 mg capsule 10/29 completed Not Available Not Available Not Available Melvin Thyroid 60 mg tablet TAKE 1 TABLET BY MOUTH DAILY active Not Available Not Available No t Available trazodone 50 mg tablet TAKE 1 TABLET BY MOUTH EVERY DAY AT BEDTIME active Not Available Not Available No t Available cetirizine 10 mg tablet TAKE 1 TABLET BY MOUTH DAILY active Not Available Not Available No t Available atorvastati n 10 mg tablet TAKE 1 TABLET BY MOUTH EVERY DAY AT BEDTIME active Not Available Not Available No t Available azithromyci n 250 mg tablet TAKE 2 TABLETS (500 MG) BY ORAL ROUTE ONCE DAILY FOR 1 DAY THEN 1 TABLET (250 MG) BY ORAL ROUTE ONCE DAILY FOR 4 DAYS 01/08 completed Not Available Not Available Not Available Lidocaine Viscous 2 % mucosal solution 01/08 completed Not Available Not Available Not Available benzonatate 200 mg capsule TAKE 1 CAPSULE BY MOUTH THREE TIMES DAILY FOR 10 DAYS NEEDED FOR COUGH 01/08 completed Not Available Not Available Not Available valacyclovi r 1 gram tablet active Not Available Not Available Not Available prednisone 20 mg tablet TAKE 2 TABLETS BY MOUTH DAILY FOR 5 DAYS FOR COUGH 01/08 completed Not Available Not Available Not Available Tubersol 5 tub. unit/0.1 mL intradermal injection solution 04/27 completed [facility]#: [phone] Not Available Not Available Not Available venlafaxine ER 150 mg capsule,ext ended release 24 hr active Not Available Not Available Not Available acyclovir 400 mg tablet TAKE 1 TABLET BY MOUTH EVERY DAY FOR 5 DAYS active Not Available Not Available No t Available ciprofloxac in 500 mg tablet 04/27 completed Not Available Not Available Not Available liothyronin e 5 mcg tablet 04/27 completed Not Available Not Available Not Available levothyroxi ne 75 mcg tablet active Not Available Not Available Not Available meloxicam 7.5 mg tablet Take 1 tablet every day by oral route at dinner. active Not Available Not Available No t Available Melvin Thyroid 15 mg tablet 01/08 completed Not Available Not Available Not Available oxycodone-a cetaminophe n 5 mg-325 mg tablet active Not Available Not Available No t Available levothyroxi ne 88 mcg tablet 04/27 completed Not Available Not Available Not Available estradiol 1 mg tablet 04/27 completed Not Available Not Available Not Available benzonatate 100 mg capsule 01/08 completed Not Available Not Available Not Available Synthroid 50 mcg tablet active Not Available Not Available Not Available estradiol 2 mg tablet Take 1 tablet every day by oral route. active Not Available Not Available No t Available estradiol 0.5 mg tablet 04/27 completed Not Available Not Available Not Available methylpredn isolone 4 mg tablets in a dose pack Take as directed on pack. Direction s for Medrol Dosepak: 1st day: 2 tablets before breakfast , 1 tablet after lunch and after supper, and 2 tablets at bedtime. 2nd day: 1 tablet before breakfast . 1 tablet after lunch and after supper, and 2 tablets at bedtime. 3rd day: 1 tablet before breakfast , after lunch, after supper and at bedtime. 4th day: 1 tablet before breakfast , after lunch and at bedtime. 5th day: 1 tablet before breakfast and at bedtime. 6th day: 1 tablet before breakfast 10/29 completed Not Available Not Available Not Available albuterol sulfate HFA 90 mcg/actuati on aerosol inhaler INHALE 2 PUFFS BY MOUTH EVERY 4 HOURS NEEDED FOR COUGH active Not Available Not Available No t Available fluticasone propionate 50 mcg/actuati on nasal spray,suspe nsion SHAKE LIQUID AND USE 1 SPRAY IN EACH NOSTRIL DAILY active Not Available Not Available No t Available amoxicillin 875 mg-potassiu m clavulanate 125 mg tablet 10/29 completed Not Available Not Available Not Available escitalopra m 5 mg tablet TAKE 1 TABLET BY MOUTH EVERY DAY IN THE MORNING active Not Available Not Available No t Available melatonin 1 mg at HS 2017 active Not Available Not Available Not Myrtle labeugenia testosteron e apply to skin nightly 01/08 completed Silvino Cast[place], [place] Not Available Not Available Not Available progesteron e 300 mg daily 01/08 completed Silvino [place], [place] Not Available Not Available Not Available DHEA 15 mg 2017 active Not Available Not Available Not Avai lable Melvin Thyroid 1.5 grain 2017 active Not Available Not Available Not Avai lable Vitamin D3 5000 iu 2017 active Not Available Not Available Not Avai lable venlafaxine ER 75 mg tablet,exte nded release 24 hr 04/27 completed Not Available Not Available Not Available Suprep Bowel Prep Kit 17.5 gram-3.13 gram-1.6 gram oral solution active Not Available Not Available Not Available Chantix Continuing Month Box 1 mg tablet active Not Available Not Available No t Available Chantix Starting Month Box 0.5 mg (11)-1 mg (42) tablets in dose pack active Not Available Not Available No t Available Fluzone 45 mcg (15 mcg x 3)/0.5 mL intramuscul ar suspension TO BE ADMINISTE RED BY PHARMACIS T FOR IMMUNIZAT ION 09/01 completed Not Available Not Available Not Available Virtussin AC 10 mg-100 mg/5 mL oral liquid 10/29 completed Not Available Not Available Not Available Vitals Date Recorded Body temperature Systolic blood pressure Diastolic blood pressure Provider Name and Address Organization Details Last Updated DateTime 01/08/2023 97.3 [degF] 117 mm[Hg] 76 mm[Hg] Jaciel Lovelace MD [address], [address], [facility] 01/08/2023 15:55:47 Date Recorded Body weight Body mass index (BMI) Body height Heart rate Oxygen saturation Oxygen saturation in Arterial blood by Pulse oximetry Provider Name and Address Organization Details Last Updated DateTime 3 32542.0 7 g 26.3 kg/m2 160.02 cm 69 /min 98 % 98 % Dayami Motta [place] [employer] 15:23:36 Date Recorded Body height Body mass index (BMI) Body weight Body temperature Heart rate Respiratory rate Oxygen saturation Oxygen saturation in Arterial blood by Pulse oximetry Systolic blood pressure Diastolic blood pressure Provider Name and Address Organization Details Last Updated DateTime 3 160.02 cm 26 kg/m2 06904.2 8 g 97.6 [degF] 58 /min 16 /min 98 % 98 % 112 mm[Hg] 70 mm[Hg] Alvino Elizabeth [place] [employer] [facility] [employer] 3 16:58:51 Social History Question Answer Notes LastModified by Organizat ion Details LastModified Time Tobacco Smoking Status Former Smoker Dayami Motta MA [facility] [employer] 01/08/2023 15:31:08 Do You Have An Advance Directive? No Information not available 01/08/2023 Is Blood Transfusion Acceptable In An Emergency? Yes Information not available 01/08/2023 What Is Your Level Of Caffeine Consumption? None Information not available 01/08/2023 What Is Your Code Status? Full Code Information not available 01/08/2023 In The 14 Days Before Symptom Onset, Have You Had Close Contact With A Laboratory-confi rmed COVID-19 While That Case Was Ill? No Information not available 01/08/2023 In The 14 Days Before Symptom Onset, Have You Had Close Contact With A Person Who Is Under Investigation For COVID-19 While That Person Was Ill? No Information not available 01/08/2023 What Type Of Diet Are You Following? VEGETARIAN Information not available 01/08/2023 What Is The Highest Grade Or Level Of School You Have Completed Or The Highest Degree You Have Received? [id number] Information not available 01/08/2023 Have There Been Any Changes To Your Family Or Social Situation? No Information not available 01/08/2023 What Is The Fluoride Status Of Your Home? Fluoridated Information not available 01/08/2023 When Did You Quit Smoking? 6-10yearssincelastc igarette Information not available 01/08/2023 Are There Any Guns Present In Your Home? No Information not available 01/08/2023 Do You Use Insect Repellent Routinely? Yes Information not available 01/08/2023 Where Do You Live? SingleLevelHouse Information not available 01/08/2023 Do You Have A Medical Power Of Social Organization Professor? No Information not available 01/08/2023 What Is Your Current Pack Years? 10packyears Information not available 01/08/2023 Do You Have Any Pets? Yes Information not available 01/08/2023 Do You Use Protection During Sex? No Information not available 01/08/2023 What Is Your Relationship Status? Information not available 01/08/2023 Do You Use Your Seat Belt Or Car Seat Routinely? Yes Information not available 01/08/2023 Are You Sexually Active? Yes Information not available 01/08/2023 Do You Have Smoke And Carbon Monoxide Detectors In Your Home? Yes Information not available 01/08/2023 At What Age Did You Start Smoking Tobacco? 18 Information not available 01/08/2023 Are You Passively Exposed To Smoke? No Information not available 01/08/2023 Are There Any Smokers In Your House? No Information not available 01/08/2023 Do You Participate In Social Media? Yes Information not available 01/08/2023 Do You Use Sunscreen Routinely? Yes Information not available 01/08/2023 Has Tobacco Cessation Counseling Been Provided? No Information not available 01/08/2023 How Many Years Have You Smoked Tobacco? 34 Information not available 01/08/2023 Have You Recently Traveled Abroad? No Information not available 01/08/2023 Are You Currently In School? No Information not available 01/08/2023 Do You Have Any Dietary Restrictions? No Information not available 01/08/2023 Sex: Unknown Functional Status Question Answer Note LastModified by Organizat ion Details LastModified Time Do you use any illicit or recreational drugs? No Information not available 01/08/2023 Do you or have you ever used any other forms of tobacco or nicotine? No Information not available 01/08/2023 What is your level of alcohol consumption? None Information not available 01/08/2023 Are you currently employed? 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 Moderate Information not available 01/08/2023 Mental Status Question Answer Note LastModified by Organization D etails LastModified Time Do you feel stressed (tense, restless, nervous, or anxious, or unable to sleep at night)? [id number] Information not available 01/08/2023 Family History Relationship Description Onset Age of this Age Resolved Age Notes LastModified by Organization Details LastModified Time Unspecified Relation History of thyroid disorder on both matern al and patern al sides of the family Not available 01/08/2023 15:28:02 Mother Malignant tumor of breast 73 did not pass from the cancer Not available 01/08/2023 15:28:49 Medical History No medical history recorded. Gynecological History Statement/Question Response Menses Monthly N STIs/STDs N Abnormal Pap N Current Control Method Hysterectom y Sexually Active? Y Obstetrics History GPAL:G 2 P 2 0 0 0 Type Value Full Term 2 Total 2 Immunizations Vaccine Type Date Status Note Provider Nam e and Address Organization Details Recorded Time Influenza, split virus, quadrivalent, preservative 7 completed Not Available [facility] 04/12/2022 08:12:27 IPV 5 completed Not Available [facility] 04/12/2022 08:12:28 Hep B, adult 5 completed Not Available [facility] 04/12/2022 08:12:28 IPV 4 completed Not Available [facility] 04/12/2022 08:12:28 MMR 4 completed Not Available [facility] 04/12/2022 08:12:28 Hep B, adult 4 completed Not Available [facility] 04/12/2022 08:12:28 MMR 4 completed Not Available [facility] 04/12/2022 08:12:28 IPV 4 completed Not Available [facility] 04/12/2022 08:12:29 Hep B, adult 4 completed Not Available [facility] 04/12/2022 08:12:29 Tdap 3 completed Not Available [facility] 04/12/2022 08:12:29 Past Encounters Encounter ID Performer Location Encounter Start Date Encounter Closed Date Diagnosis/Indication Diagnosis SNOMED-CT Code Diagnosis ICD10 Code Diagnosis Note [id number] Jaciel Lovelace MD [facility] [address] [address] 01/08/2023 15:10:59 01/08/2023 15:59:37 Adult health examination 312672310 Z00.00 Hypothyroidism 23703509 E03.9 Vitamin D deficiency 347 [address] E55.9 Diabetes m ellitus screening 681346970 Z13.1 Ex-smoker 6526631 Z87.89 1 Anxiety disorder F41.9 Chronic insomnia 6355788 04 F51.04 [id number] Jaciel Lovelace MD [facility] [address] [address] 01/31/2023 16:47:12 01/31/2023 17:11:41 Hypothyroidism 66577193 E03.9 Vitamin D deficiency 347 60195 E55.9 Improved Ex-smoker 2827113 Z87.89 1 Anxiety disorder F41.9 Chronic insomnia 3998893 F51.04 Hyperlipidemia 04807721 E78.5 Health Concerns Section Related Observation LastModified by Organization Detai ls LastModified Time None Recorded Concern Status LastModified by Organization Details LastModified Time None Recorded Advance Directives Directive N: Payers Encounter Date Sequence Insurance Name Policy Number Policy Nguyen Covered Member ID Nguyen Member ID Guarantor Name 01/08/2023 1 [facility] [id number] Zeb Garcia [id number] Hazel Peters Jose 01/31/2023 1 [facility] [id number] Zeb Garcia [id number] Hazel Garcia Notes Date Note Type Note Provider Name and Address Organization Details Recorded Time 01/08/2023 text/html New pt visit. Pt is here for her annual exam and has some concerns. Pt has not seen any PCP for last several years. Pt is f/u with Endo at [facility] [place]. C/o feeling anxious everyday since covid and she has not tried any med for it. For last few months, its bothering her more and she wants to try a med for it. Denies any mood swings/SI/HI. C/o not able to get enough sleep for last few yrs. Pt has tried otc meds for this, but its not helping her. Denies any other concern.PMH, FH and SH reviewed. Jaciel Lovelace MD [address] [place] [address], [address] [address], [place], [address], [facility] [employer] 01/08/2023 15:58:08 01/31/2023 text/html Pt is here for f/u on her annual labs. Doing overall much better than last visit. Denies any problem with meds. Pt is f/u with Endo at [facility] [place]. C/o feeling anxious everyday since covid and she has not tried any med for it. For last few months, its bothering her more and she wants to try a med for it. Denies any mood swings/SI/HI. C/o not able to get enough sleep for last few yrs. Pt has tried otc meds for this, but its not helping her. Jaciel Lovelace MD [address] [facility], [facility] [address], [place], [address], [facility] [employer] 01/31/2023 17:10:29 OBGyn Episode Ob Episode Information Episode Created Date Number of Fetuses Patient Bloodtype Patient rh Status Prepregnancy Weight lbs Domestic Partner Domestic Partner Phone Father Name Specification Manager Status 01/09/20 23 1 CLOSED Fetus Data First Name Last Name Admitted to NICU Weight (g) Sex Living Outcome Pediatric Complications Fetus ID Race Codes Race Delivery Type M Full Term 682 Tomas Calculation Initial Tomas Date Initial Exam Date Initial Exam Provider Initial Ultrasound Date Last Menstrual Period Date Ultra Sound Weeks Gestation 0 Eighteen To Twenty Week Tomas Update Ultra Sound Date Fundal Height At Umbil Quickening Date Ultra Sound Latest Weeks Gestation Final Tomas Confirmed By Final Tomas Confirmed Date Final Tomas Date Ultra Sound Latest Days Gestation 0 0 Menstrual History Last Menstrual Date Menses Monthly On Bcp Conception Prior Menses Frequency Hcg Plus Date Menarche Onset Age Delivery Information Delivery Date Delivery Type Labor Anesthesia Weeks Gestation Incision Type Labor Labor Length Hrs Delivered By Post Complications Tubal Sterilization Discharge Date Comments 4 Discharge Information Feeding Method Contraceptive Method Maternal HG B and HCT Levels Ob Episode Information Episode Created Date Number of Fetuses Patient Bloodtype Patient rh Status Prepregnancy Weight lbs Domestic Partner Domestic Partner Phone Father Name Specification Manager Status 01/09/20 23 1 CLOSED Fetus Data First Name Last Name Admitted to NICU Weight (g) Sex Living Outcome Pediatric Complications Fetus ID Race Codes Race Delivery Type F Full Term 683 Tomas Calculation Initial Tomas Date Initial Exam Date Initial Exam Provider Initial Ultrasound Date Last Menstrual Period Date Ultra Sound Weeks Gestation 0 Eighteen To Twenty Week Tomas Update Ultra Sound Date Fundal Height At Umbil Quickening Date Ultra Sound Latest Weeks Gestation Final Tomas Confirmed By Final Tomas Confirmed Date Final Tomas Date Ultra Sound Latest Days Gestation 0 0 Menstrual History Last Menstrual Date Menses Monthly On Bcp Conception Prior Menses Frequency Hcg Plus Date Menarche Onset Age Delivery Information Delivery Date Delivery Type Labor Anesthesia Weeks Gestation Incision Type Labor Labor Length Hrs Delivered By Post Complications Tubal Sterilization Discharge Date Comments 7 Discharge Information Feeding Method Contraceptive Method Maternal HG B and HCT Levels
--- OUTSIDE RECORDS SUMMARY | 2024-07-18 08:01 | XMS_ITS | Clinical Summary ---
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 TAKE 1 TABLET DAILY 90 tablet 3 06/14/19 25 025 Discontinued(Re order) levothyroxine (SYNTHROID) 50 mcg tabletIndicatio ns: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 TAKE 1 TABLET DAILY 90 tablet 3 06/14/19 25 025 Discontinued(Re order) levothyroxine (SYNTHROID) 50 mcg tabletIndicatio ns: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 Take 1 tablet by mouth daily but 2 tablets on Sundays 100 tablet 3 07/10/19 25 025 Discontinued(Re order) thyroid ([place] Thyroid) 60 mg tabletIndicatio ns: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 Take 1 tablet (60 mg total) by mouth daily 90 tablet 3 07/10/19 25 025 Discontinued(Re order) Active Problems Problem Noted [...] Will adjust dose of levothyroxine and or [place] thyroid accordingly Assessment & Plan (10/25/2021 3:43 PM CDT): Recheck TSH, free T4 and free T3 I emphasized to the patient the importance of taking her medication regularly Will make adjustment, if indicated Follow-up in in 6 months Assessment & Plan (10/26/2020 3:39 PM CDT): Thyroid function tests, including TSH and free T4 were requested Will adjust dose of [place], if indicated Assessment & Plan (10/21/2019 3:34 PM CDT): Continue [place] to current dose Check TSH Assessment & Plan (11/28/2018 3:00 PM CDT): Will check TSH and free T4 Will adjust dose of [place], acccordingly . If there is a need to make changes, will recheck levels in 2-3 months. Instructions to patient on taking medication properly Assessment & Plan (09/04/2017 9:41 AM CDT): Your goal of treatment is to keep TSH , T3 and T4 within normal range. . Will recheck thyroid function tests and will advised on adjustment to current dose of [place]. Assessment & Plan (08/21/2016 9:50 AM CDT): Check TSH, free T4 Will try [place] , as per patient request Recheck levels [...] NOS Assessment & Plan (04/08/2019 4:54 PM BONE DENSITY TECHNICIAN): Check TFT Adjust dose of [place] accordingly Anemia 06/28/2013 Overview (05/19/2016): ANEMIA NOS Lymphocytic thyroiditis 06/28/2013 Overview (05/19/2016): CHR LYMPHOCYT THYROIDIT Metabolic bone disease 10/31/2011 Overview (05/19/2016): Bone disease, metabolic Resolved Problems Problem Noted Date Diagnosed Date Resolved Date Tobacco dependence syndrome 10/31/2011 09/04/2017 Overview (05/19/2016): Tobacco use disorder Encounters Date Type Department Care Team Description 07/09/2024 Results Follow-Up [facility] [address] [phone] Janette Contreras MD Vitamin D 25 hydroxy, TSH, Lipid panel 07/04/2024 Orders Only [facility] [address] [phone] Janette Contreras MD 07/02/2024 3:00 PM CDT [facility] [address] [phone] Janette Contreras MD 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); Vitamin D deficiency from Last 3 Months Surgical History Surgery Date Site/Laterality Comments REDUCTION MAMMOPLASTY 2001 Breast reduction HYSTERECTOMY 2004 Hysterectomy TONSILLECTOMY 2011 Tonsillectomy Medical History Medical History Date Comments Disorder of thyroid Thyroid dise ase Hx Other Medical claustrophobic; Comments: SALDANA 12/23/2013 - Family History Medical History Relation Name Comments Thyroid disease Father Thyroid dise ase; Relation Name Status Comments Father Social History Tobacco Use Types Packs/Day Years [...] on file Legal Sex Female 3:05 AM BONE DENSITY TECHNICIAN Gender Identity Not on file Sexual Orientation Not on file Obstetrics History Last Filed Vital Signs Vital Sign Reading [...] 07/02/2024 3:01 PM CDT Plan of Treatment Health Maintenance Due Date Last Done Comments Breast Cancer Screening-Mammogram 1961 Colon Cancer Screening-Colonoscopy 1961 Hepatitis C Screening 1961 Regular Well Visit/Exam 18-64 06/24/1979 DTaP/Tdap/Td Vaccine (2 - Td or Tdap) 10/25/2022 10/25/2012 Depression Screening 10/25/2022 10/25/2021, 10/21/2019, 04/08/2019, Additional history exists Influenza Vaccine (Season Ended) 2024 11/13/2016, 02/19/2014, 02/22/2012 Hepatitis B Screening Completed 04/14/2014 , 10/14/2013, 09/01/2013 Zoster Vaccine Completed 03/18/2018, 11/27/2017 Pneumococcal vaccine <65 Aged Out No longer eligible based on patient's age to complete this topic Procedures Procedure Name Priority Date/Time Associated Diagnosis Comments T3, FREE Routine 07/04/2024 3:18 PM CDT TSH Routine 07/04/2024 3:18 PM CDT T4, FREE Routine 07/04/2024 3:18 PM CDT VITAMIN D 25 HYDROXY Routine 07/04/2024 3:18 PM CDT LIPID PANEL Routine 07/04/2024 3:18 PM CDT from Last 3 Months Results * Vitamin D 25 hydroxy (07/04/2024 3:18 PM CDT) Vitamin D, 25-Hydroxy 50.0 30.0 - 100.0 ng/mL [facility] - 01 Comment: Vitamin D deficiency has been defined by the [place] of [employer] and an Endocrine Society practice guideline as a level of serum 25-OH vitamin D less than 20 ng/mL (1,2). The Endocrine Society went on to further define vitamin D insufficiency as a level between 21 and 29 ng/mL (2). 1. IOM ([place] of [employer]). 2010. Dietary reference intakes for calcium and D. [place]: The National Academies Press. 2. Leonard MF, Maurice HUIZAR, Shagufta ROCHA, et al. Evaluation, treatment, and prevention of vitamin D deficiency: an Endocrine Society clinical practice guideline. JCEM. 2010; 96(7):1911-30. 07/04/2024 3:18 PM CDT 07/04/2024 Narrative [facility] - 07/05/2024 7:09 AM CDT Performed at: [address] [place] [id number] Sprinkler Tender: Dickson Higgins PhD, Phone: [phone] us Janette Contreras MD LAB BLOOD ORDERABLES Final Resul t [facility] - * T3, free (07/04/2024 3:18 PM CDT) Triiodothyronin e,Free,Serum 2.9 2.0 - 4.4 pg/mL [facility] - 01 07/04/2024 3:18 PM CDT 07/04/2024 Narrative [facility] - 07/05/2024 8:11 AM CDT Performed at: [address] [place] [id number] Sprinkler Tender: Dickson Higgins PhD, Phone: [phone] Janette Contreras MD LAB BLOOD ORDERABLES Final Resul t Performing Organization Address [facility] Phone Number [facility] - * (ABNORMAL) TSH (07/04/2024 3:18 PM CDT) Pathologist [facility] TSH 7.650(H) 0.450 - 4.500 uIU/mL [facility] - 01 07/04/2024 3:18 PM CDT 07/04/2024 Narrative [facility] - 07/05/2024 8:11 AM CDT Performed at: [address] [place] [id number] Sprinkler Tender: Dickson Higgins PhD, Phone: [phone] Janette Contreras MD LAB BLOOD ORDERABLES Final Resul t Performing Organization Address [facility] Phone Number [facility] - * T4, free (07/04/2024 3:18 PM CDT) Pathologist [facility] T4,Free(Direct) 1.05 0.82 - 1.77 ng/dL [facility] - 01 07/04/2024 3:18 PM CDT 07/04/2024 Narrative [facility] - 07/05/2024 8:11 AM CDT Performed at: [address] [place] [id number] Sprinkler Tender: Dickson Higgins PhD, Phone: [phone] us Janette Contreras MD LAB BLOOD ORDERABLES Final Resul t Performing Organization Address [facility] de Phone Number [facility] - * (ABNORMAL) Lipid panel (07/04/2024 3:18 PM CDT) Pathologist [facility] Cholesterol 210(H) 100 - 199 mg/dL [facility] - 01 Triglycerides 210(H) 0 - 149 mg/dL [facility] - 01 HDL Cholesterol 52 >39 mg/dL [facility] - 01 VLDL 37 5 - 40 mg/dL [facility] - 01 LDL, calculated 121(H) 0 - 99 mg/dL [facility] - 01 07/04/2024 3:18 PM CDT 07/04/2024 Narrative [facility] - 07/05/2024 7:09 AM CDT Performed at: - [facility] [address] [id number] Sprinkler Tender: Dickson Higgins PhD, Phone: [phone] us Janette Contreras MD LAB BLOOD ORDERABLES Final Resul t [facility] - 01 from Last 3 Months Insurance [facility] [place] [address] [facility] PLUS WORK[employer] COMPENSATION [place] [id number] [facility] CHO[facility] PLUS Member Subscriber Plan / Payer (Ef fective 2016-Present) Name:Hazel Garcia Fran Relation to Subscriber:Spouse Name:MARY GARCIA Date of :1957 (Home) Address: [address] [place] [address] Payer ID:[id number] (NAIC) Type:[facility] HMO/PPO Address: [place] [id number] Care Teams Post Form Remover Relationship Specialty Start Date End Date Do Duron MD [address] [address] PCP - General 12/21/15
--- OUTSIDE RECORDS SUMMARY | 2024-07-18 08:02 | XMS_ITS | Clinical Summary ---
Author Organization [facility] Address [address] [place] [address] Phone Care Team Providers Care Tea Taster Name Role Phone Do Duron MD Primary Care Provider +1- [phone] Allergies No known active allergies Medications CALCIUM CARBONATE/VITAMI N D3 (CALCIUM 600 + D,3, ORAL) Act anushka varenicline (CHANTIX CONTINUING MONTH BOX) 1 mg Tablet Act anushka FLU VACCINE 2011-,36MOS+,/ PF (FLUZONE , PF, IM) Active levothyroxine 88 mcg Oral tablet Acti ve liothyronine (CYTOMEL) 5 mcg Tablet Active meloxicam (MOBIC) 7.5 mg tablet Active multivitamin (DAILY-ANDRES) tablet Take 1 Tab by mouth daily. Active SUPREP 17.5-3.13-1.6 gram Recon Soln 09/09/2013 Act anushka oxyCODONE-acetam inophen (PERCOCET) 5-325 mg tablet Take 1 Tab by mouth every 6 hours as needed for Pain, Moderate. 20 Tab 0 09/25/2013 Active Active Problems Patient Care Coordination No te Formatting of this note migh t be different from the original. Primary Care: Do Duron MD Referring Provider: Ruchi Lao MD [address] [facility] [address] [place] [address] Other: Problem Noted Date Diagnosed Date Fibrocystic breast changes 10/06/2013 Family history of breast cancer 09/02/2013 Breast nodule 08/25/2013 Larry's thyroiditis Family History Medical History Relation Name Comments Lung Cancer Father Breast Cancer Mother Relation Name Status Comments Father Mother Social History Tobacco Use Types Packs/Day Years Used Date Smoking Tobacco: Former Cigarettes 0 11/03/1980 - 11/03/2012 Smokeless Tobacco: Never Alcohol Use Standard Drinks/Week Comments Yes 0 (1 standard drink = 0.6 oz pur e alcohol) moderate Comments No Sex and Gender Information Value Date Recorded Sex Assigned at Not on file Legal Sex Female 10:55 AM CDT Gender Identity Not on file Sexual Orientation Not on file Occupation Industry Job Start Date Job End Date Not on file Not on file Not on file Not on file Last Filed Vital Signs Vital Sign Reading Time Taken Comments Blood Pressure 109/67 09/25/2013 10:37 AM CDT Pulse 64 09/25/2013 9:48 AM CDT Temperature 36.7 C (98 F) 09/25/2013 9:48 AM CDT Respiratory Rate 18 09/25/2013 10:37 AM CDT Oxygen Saturation 100% 09/25/2013 10:37 AM CDT Inhaled Oxygen Concentration - - Weight 72.1 kg (159 lb) 09/25/2013 8:59 AM CDT Height 160 cm (5' 3) 09/25/2013 8:59 AM CDT Body Mass Index 28.17 09/25/2013 8:59 AM CDT Plan of Treatment Health Maintenance Due Date Last Done Comments DTAP/TDAP/TD VACCINES (1 - Tdap) 1980 HPV/Cotest (21-29) 1982 CERVICAL CANCER SCREENING 06/24/1991 HPV/Cotest (30-65) 06/24/1991 PAP SMEAR 06/24/1991 COLORECTAL SCREENING 2006 Colorectal Cancer Screening 2006 FIT-DNA Q 3 years 2006 FIT/FOBT Q 1 year 2006 Flex Sig/CT Colonography Q 5 years 2006 ZOSTER VACCINE (1 of 2) 06/24/2011 BREAST CANCER SCREENING 06/24/2014 06/24/2013, 05/29 INFLUENZA VACCINE (#1) 2023 RSV VACCINE (60+ or ) (1 - 1-dose 75+ series) 2036 Procedures Procedure Name Priority Date/Time Associated Diagnosis Comments MAMMO SCREEN BILAT W OR WO CAD Routine 06/24/2013 from Last 3 Months or Most Recently Relevant to Health Maintenance Results * MAMMO DIGITAL SCREEN BILAT (06/24/2013) Anatomical Region Laterality Modality Breast Bilateral Other us Ruchi Lao MD MAMMO ORDERABLES Final R esult from Last 3 Months or Most Recently Relevant to Health Maintenance Insurance Advance Directives For more information, please contact: [phone] * Full Code (Latest Code Status on File) Date Activated Date Inactivated Comments 09/25/2013 8:56 AM 09/25/2013 12:55 PM Care Teams Tea Taster Relationship Specialty Start Date End Date Do Duron MD [address] [facility] [address] [place] [id number] PCP - General 01/29/15
== END 2024-07-18 07:57 | disposition home or self-care (01) ==
LOC: CHSIMG 07:59
PROVIDERS: PCP Nurse Practitioner Obstetrics & Gynecology; Visit Provider Nurse Practitioner Obstetrics & Gynecology
DX: Z12.31 Encounter for screening mammogram for malignant neoplasm of breast (principal); R92.8 Other abnormal and inconclusive findings on diagnostic imaging of breast
CPT/HCPCS: 77063; 77067

== ENCOUNTER 2024-07-25 09:00 | Outpatient (CLI) | payer OTHER, SELFPAY ==
--- NOTE | ~2024-07-25 | MMUS_ITS ---
EXAMINATION: MM diagnostic carlos BI w gerson, US breast LT limited HISTORY: Follow-up left periareolar mass TECHNIQUE: Additional 3-D tomosynthesis images of the left breast were performed and synthetic 2-D im ages were generated. CAD analysis was submitted and interpreted. High resolution Limited left breast ultrasound was performed. COMPARISON: Comparison to multiple prior studies sequentially, with oldest reviewed study dated 08/01. BREAST PARENCHYMAL COMPOSITION: Not dense: There are scattered areas of fibroglandular density. FINDINGS: MAMMOGRAPHIC FINDINGS: There is a periareolar mass in the lower inner quadrant. There are no suspicious calcifications or ar chitectural distortion. ULTRASOUND: Limited left breast ultrasound: At 7:00, in the periareolar location there is an oval 6 x 5 x 5 mm ma ss with low level internal echoes, likely complicated benign cyst. IMPRESSION: 1. Probable benign complicated left breast cyst corresponding to the mammographic abnormality. 2. Recommend 6 month follow-up Limited left breast ultrasound BI-RADS category 3, probably benign findings. Reviewed, dictated and finalized at location [] IMPRESSION: 1. Probable benign complicated left breast cyst corresponding to the mammograph ic abnormality. 2. Recommend 6 month follow-up Limited left breast ultrasound BI-RADS category 3, probably benign findings.
--- OUTSIDE RECORDS SUMMARY | 2024-07-25 09:04 | XMS_ITS | Clinical Summary ---
Author Organization [facility] [place] Address [address] [place] [address] Phone Care Team Providers Care Photoengraving Proofer Name Role Phone Do Duron MD Primary Care Provider +1- [phone] Allergies No known active allergies Medications CALCIUM CARBONATE/VITAMI N D3 (CALCIUM 600 + D,3, ORAL) Act anushka varenicline (CHANTIX CONTINUING MONTH BOX) 1 mg Tablet Act anushka FLU VACCINE ,36MOS+,/ PF (FLUZONE , PF, IM) Active levothyroxine [...] Duron MD Referring Provider: Ruchi Lao MD [address] [facility] [address] [place] [address] Other: Problem Noted Date Diagnosed Date Fibrocystic [...] Advance Directives For more information, please contact: [phone] * Full Code (Latest Code Status on File) Date Activated Date Inactivated Comments 09/25/2013 8:56 AM 09/25/2013 12:55 PM Care Teams Photoengraving Proofer Relationship Specialty Start Date End Date Do Duron MD [address] [facility] [address] [place] [phone] PCP - General 01/29/15
--- OUTSIDE RECORDS SUMMARY | 2024-07-25 09:04 | XMS_ITS | Clinical Summary ---
Author Organization [facility] Building [address] [place] [address] Care Team Providers Care Door Assembler Name Role Phone Do Duron MD Primary Care Provider +1 -[phone] Allergies No known active allergies Medications multivitamin [...] 100 tablet 3 07/11/19 25 Active thyroid ([place] Thyroid) 60 mg tabletIndicatio ns:Hypothyroidi sm due [...] EACH NOSTRIL DAILY 02/18/19 025 Discontinued(Ot her) [place] Thyroid 60 mg tabletIndicatio ns:Hypothyroidi sm due [...] 3 07/10/19 25 025 Discontinued(Re order) thyroid ([place] Thyroid) 60 mg tabletIndicatio ns:Hypothyroidi sm due [...] Will adjust dose of levothyroxine and or [place] thyroid accordingly Assessment & Plan (10/25/2021 3:43 PM CDT): Recheck TSH, free T4 and free T3 I emphasized to the patient the importance of taking her medication regularly Will make adjustment, if indicated Follow-up in in 6 months Assessment & Plan (10/26/2020 3:39 PM CDT): Thyroid function tests, including TSH and free T4 were requested Will adjust dose of [place], if indicated Assessment & Plan (10/21/2019 3:34 PM CDT): Continue [place] to current dose Check TSH Assessment & Plan (11/28/2018 3:00 PM CDT): Will check TSH and free T4 Will adjust dose of [place], acccordingly . If there is a need to make changes, will recheck levels in 2-3 months. Instructions to patient on taking medication properly Assessment & Plan (09/04/2017 9:41 AM CDT): Your goal of treatment is to keep TSH , T3 and T4 within normal range. . Will recheck thyroid function tests and will advised on adjustment to current dose of [place]. 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 Overview (05/19/2016): CHR LYMPHOCYT THYROIDIT Metabolic bone disease 10/31/2011 Overview (05/19/2016): Bone disease, metabolic Resolved Problems Problem Noted Date Diagnosed Date Resolved Date Tobacco dependence syndrome 10/31/2011 09/04/2017 Overview (05/19/2016): Tobacco use disorder Encounters Date Type Department Care Team Description 07/09/2024 Results Follow-Up [facility] [address] [phone] Janette Contreras MD Vitamin D 25 hydroxy, TSH, Lipid panel 07/04/2024 Orders Only [facility] [address] [phone] Janette Contreras MD 07/02/2024 3:00 PM CDT [facility] [address] [phone] Janette Contreras MD Hypothyroidism due to Larry's [...] on file Legal Sex Female 3:05 AM APPAREL MANAGER Gender Identity Not on file Sexual Orientation [...] D deficiency has been defined by the [place] of [employer] and an Endocrine Society practice guideline as a level of serum 25-OH vitamin D less than 20 ng/mL (1,2). The Endocrine Society went on to further define vitamin D insufficiency as a level between 21 and 29 ng/mL (2). 1. IOM ([place] of [employer]). 2010. Dietary reference intakes for calcium and D. [place]: The National Academies Press. 2. Leonard MF, Maurice HUIZAR, Shagufta ROCHA, et al. Evaluation, treatment, and prevention of vitamin D deficiency: an Endocrine Society clinical practice guideline. JCEM. 2010; 96(7):1911-30. 07/04/2024 3:18 PM CDT 07/04/2024 Narrative [facility] - 07/05/2024 7:09 AM CDT Performed at: [address] [place] [id number] Health Program Director: Dickson Higgins PhD, Phone: [phone] us Janette Contreras MD LAB BLOOD ORDERABLES Final Resul t [facility] - * T3, free (07/04/2024 3:18 PM CDT) Triiodothyronin e,Free,Serum 2.9 2.0 - 4.4 pg/mL [facility] - 01 07/04/2024 3:18 PM CDT 07/04/2024 Narrative [facility] - 07/05/2024 8:11 AM CDT Performed at: [address] [place] [id number] Health Program Director: Dickson Higgins PhD, Phone: [phone] Janette Contreras MD LAB BLOOD ORDERABLES Final Resul t Performing Organization Address [facility] Phone Number [facility] - * (ABNORMAL) TSH (07/04/2024 3:18 PM CDT) Pathologist [facility] TSH 7.650(H) 0.450 - 4.500 uIU/mL [facility] - 01 07/04/2024 3:18 PM CDT 07/04/2024 Narrative [facility] - 07/05/2024 8:11 AM CDT Performed at: [address] [place] [id number] Health Program Director: Dickson Higgins PhD, Phone: [phone] Janette Contreras MD LAB BLOOD ORDERABLES Final Resul t Performing Organization Address [facility] Phone Number [facility] - * T4, free (07/04/2024 3:18 PM CDT) Pathologist [facility] T4,Free(Direct) 1.05 0.82 - 1.77 ng/dL [facility] - 01 07/04/2024 3:18 PM CDT 07/04/2024 Narrative [facility] - 07/05/2024 8:11 AM CDT Performed at: [address] [place] [id number] Health Program Director: Dickson Higgins PhD, Phone: [phone] us Janette Contreras MD LAB BLOOD ORDERABLES Final Resul t Performing Organization Address [facility] de Phone Number [facility] - * (ABNORMAL) Lipid panel (07/04/2024 3:18 PM CDT) Pathologist [facility] Cholesterol 210(H) 100 - 199 mg/dL [facility] - 01 Triglycerides 210(H) 0 - 149 mg/dL [facility] - 01 HDL Cholesterol 52 >39 mg/dL [facility] - 01 VLDL 37 5 - 40 mg/dL [facility] - 01 LDL, calculated 121(H) 0 - 99 mg/dL [facility] - 01 07/04/2024 3:18 PM CDT 07/04/2024 Narrative [facility] - 07/05/2024 7:09 AM CDT Performed at: - [facility] [address] [id number] Health Program Director: Dickson Higgins PhD, Phone: [phone] us Janette Contreras MD LAB BLOOD ORDERABLES Final Resul t [facility] - 01 from Last 3 Months Insurance [facility] [place] [address] [facility] [employer] PLUS WORKERS COMPENSATION GENERIC [place] [id number] [facility] CHO[employer] PLUS Member Subscriber Plan / Payer (Ef fective 2016-Present) Name:Hazel Garcia Fran Relation to Subscriber:Spouse Name:MARY GARCIA Date of :1956 (Home) Address: [address] [place] [address] Payer ID:[id number] (NAIC) Type:[facility] HMO/PPO Address: [place] [id number] Care Teams Door Assembler Relationship Specialty Start Date End Date Do Duron MD [address] [address] PCP - General 12/21/15
--- OUTSIDE RECORDS SUMMARY | 2024-07-25 09:04 | XMS_ITS | Encounter Summary ---
Author Organization [facility] Address [address] [facility] [place] [address] Care Team Providers Care Principal Security Architect Name Role Phone Unavailable Primary Care Provider Unavailabl e Encounter Details Date Type Department Care Team (Late st Contact Info) Description 04/27/2021 Lab Requisition [facility] DermPath Lab [address] [facility] [facility] [address], [place] [id number] Binh Nguyen MD [address] [place] [address] Social History Tobacco Use Types Packs/Day [...] AM CDT) Case Report Dermatopathology Report Case: [id number] Authorizing Provider: Binh Nguyen MD Collected: 04/26/2021 12:00 AM Ordering Location: [facility] DermPath Lab Received: 04/27/2021 03:09 PM Pathologist: Jessy Neville MD Specimen: Skin, left lateral cheek 2 3:52 PM CDT DERMATOPATHOLOGY LABORATORY Final Diagnosis Specimen A. 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 Path # [id number]. 2 3:52 PM CDT DERMATOPATHOLOGY LABORATORY Gross Description Specimen A: Received is one formalin filled container labeled with the patient's name and designated left lateral cheek. The specimen consists of a shave biopsy measuring [id number]. Jar 0. 2 3:52 PM CDT DERMATOPATHOLOGY [...] larger lesion, these findings may not be graphic art sales representative of the entire lesion. Clinicopathologic correlation [...] characteristic determined by the Dermatopathology Laboratory at [facility], directed by Dr. Danny Orellana. These tests need not be, and therefore are not, approved by the [place] Food and Drug Administration. The tests are used for clinical purposes. Billing Codes Specimen Charges Stain Charges 54374 1 29878 1 2 3:52 PM CDT DERMATOPATHOLOGY LABORATORY Embedded Images 2 3:52 PM CDT DERMATOPATHOLOGY LABORATORY Pathology/Cytolog y TISSUE SPECIMEN FROM SKIN / Unknown 04/26/2021 04/27/2021 3:09 PM CDT us Binh Nguyen MD LAB - PATHOLOGY/CYTOLOGY ORDER AKSHAT Final Result DERMATOPATHOLOGY LABORATORY [facility] - Department of Dermatology [address], [address] [phone] documented in this encounter Visit Diagnoses Not on filedocumented in this encounter
--- OUTSIDE RECORDS SUMMARY | 2024-07-25 09:04 | XMS_ITS | Data Portability ---
Author Organization [place] [facility] [employer], Main Office Address [address] [place] [address] Care Team Providers Care Roughener Name Role Phone JACIEL LOVELACE Primary Care Provider Assessment Encounter Date Assessment Date Assessment LastModified [...] in 2 weeks. Annual labs in 01/05. Not available 01/08/2023 15:56:56 01/31/2023 01/31/2023 61 [...] Lipids in 05/05. Annual labs in 01/05. [email or web address] Not available 01/31/2023 17:09:29 Plan of Treatment Reminders Order Date Submit Date Provider Last Modified By Organization Details Last Modified Time Details Appointments None recorded. Lab lipid panel, serum 2022 024 [email or web address] [facility], [address], [place], [address], 4 08:05:33 vitamin D, 25-hydroxy, total, serum 2022 023 [email or web address] [facility], [address], [place], [address], 3 12:03:36 HbA1c (hemoglobin A1c), blood 2022 023 [facility] (Lab), [address] [place], [address], 3 12:03:36 CBC w/ auto diff 2022 023 [email or web address] [facility], [address], [place], [address], 10:40:57 CMP, serum or plasma 2022 [email or web address] [facility], [address], [place], [address], 12:03:35 lipid panel, serum 2022 023 [email or web address] [facility], [address], [place], [address], 12:03:35 TSH, serum, reflex free T4 2022 023 [email or web address] [facility], [address], [place], [address], 12:03:35 urinalysis complete, reflex culture 2022 [email or web address] [facility], [address], [place], [address], 12:03:36 Referral None recorded. Procedures None recorded. Surgeries None recorded. Imaging None recorded. Medication Orders escitalopra m 5 mg tablet 2022 [facility] #[id number], [address], [place], [id number], 17:04:52 atorvastati n 10 mg tablet 2022 023 [facility] #[id number], [address], [place], [id number], 17:04:55 trazodone 50 mg tablet 2022 023 [facility] #02320, [address], [place], [id number], 17:04:56 escitalopra m 5 mg tablet 2022 023 [facility] #28206, [address], [place], [id number], 3 15:49:28 trazodone 50 mg tablet 2022 023 [facility]10, [address], [place], [id number], 3 15:49:38 Patient TargetsNo targets recorded. Patient InstructionsNo instructions recorded. Reason for Referral None Reported. Results Created Date Observation Date Name Description Value Unit Range Abnormal Flag Note LastModifiedBy Organization Detail LastModifiedTime Result Notes None recorded. Problems Name Problem SNOMED Code Status Onset Date Resolution Date Notes Provider Name and Address Organization Details Recorded Time Pain of joint of hand 329287568 Completed Not Available [facility] 3 08:08:42 Lateral epicondyli tis 556975586 Completed Not Available [facility] 3 08:08:42 Family history of Cardiovasc ular disease 897759273 Active 2017 Not Available [facility] 3 08:08:42 Hypothyroi dism 39605202 Active 2017 Not Available [facility] 3 08:08:42 Family history of breast cancer 768118456 Active 2017 Not Available [facility] 3 08:08:42 Seasonal allergy 448929837 Completed Not Available [facility] 3 08:08:42 Posterior rhinorrhea 74378872 Completed Not Available [facility] 3 08:08:43 Vitamin D deficiency 71931593 Active 2022 Jaciel Lovelace MD [address] [address], [place], [address] , General [employer] [facility] [employer] [facility] 3 15:42:52 Ex-smoker 5192392 Active 2022 Jaciel Lovelace MD [address], [place], [address] , General Assembly [facility] [employer] 3 15:43:49 Anxiety disorder 144612954 Active 2022 Jaciel Lovelace MD [address] [facility], [address], [address] , General Assembly [facility] [employer] 3 15:46:39 Chronic insomnia 275684327 Active 2022 Jaciel Lovelace MD [address] [facility], [address], [address] , General Assembly [facility] [employer] 3 15:46:55 Hyperlipid emia 82407126 Active 2022 Jaciel Lovelace MD [address] [facility], [address], [address] , General Assembly [facility] [employer] 3 17:02:43 Altered bowel function 47630545 Active 2023 Jaciel Lovelace MD [address] [facility], [address], [address] , General Assembly [facility] [employer] 4 10:23:32 Problem Notes None recorded. Procedures Surgical History Date Name Laterality Status Provider Name and Address Organization Details Recorded Time 02/12/19 12 Removal of tonsils completed Dayami Motta MA MD [employer] [facility] [employer] 01/08/2023 15:34:46 02/12/19 12 Hysterectomy completed Dayami Motta MA MD [employer] [facility] [employer] 01/08/2023 15:35:38 02/12/19 02 Breast reduction completed Dayami Motta MA MD [employer] [facility] [employer] 01/08/2023 15:35:09 Imaging Results None recorded. Procedure Notes None recorded. Medical Equipment None Reported. Allergies No known drug allergies Medications Name Sig Start Date Stop Date Status Note LastModified by Organization Details LastModified Time amoxicillin 500 mg capsule 10/29 completed Not Available Not Available Not Available [employer] Thyroid 60 mg tablet TAKE 1 TABLET [...] unit/0.1 mL intradermal injection solution 04/27 completed [facility] [place][note 2]#: [phone] [phone] [phone] Not Available Not Available Not [...] Not Available Not Available No t Available [facility] Thyroid 15 mg tablet 01/08 completed Not [...] Not Available Not Available Not Avai lable [facility] Thyroid 1.5 grain 2017 active Not Available [...] mm[Hg] 76 mm[Hg] Jaciel Lovelace MD [address], [address], [facility] [employer] 01/08/2023 15:55:47 Date Recorded Body weight Body mass index (BMI) Body height Heart rate Oxygen saturation Oxygen saturation in Arterial blood by Pulse oximetry Provider Name and Address Organization Details Last Updated DateTime 3 10148.0 7 g 26.3 kg/m2 160.02 cm 69 /min 98 % 98 % Dayami Motta MA MD [employer] [facility] 15:23:36 Date Recorded Body height Body mass index (BMI) Body weight Body temperature Heart rate Respiratory rate Oxygen saturation Oxygen saturation in Arterial blood by Pulse oximetry Systolic blood pressure Diastolic blood pressure Provider Name and Address Organization Details Last Updated DateTime 3 160.02 cm 26 kg/m2 21724.2 8 g 97.6 [degF] 58 /min 16 /min 98 % 98 % 112 mm[Hg] 70 mm[Hg] Alvino Elizabeth MD [employer] [facility] [employer] 3 16:58:51 Social History Question Answer Notes LastModified by Organizat ion Details LastModified Time Tobacco Smoking Status Former Smoker Dayami Motta MA [facility] [employer] 01/08/2023 15:31:08 Do You Have An Advance [...] Or The Highest Degree You Have Received? [id number] Information not available 01/08/2023 Have There Been [...] Do You Have A Medical Power Of Security Auditor? No Information not available 01/08/2023 What Is [...] anxious, or unable to sleep at night)? [id number] Information not available 01/08/2023 Family History Relationship [...] virus, quadrivalent, preservative 7 completed Not Available [facility] 04/12/2022 08:12:27 IPV 5 completed Not Available [facility] 04/12/2022 08:12:28 Hep B, adult 5 completed Not Available [facility] 04/12/2022 08:12:28 IPV 4 completed Not Available [facility] 04/12/2022 08:12:28 MMR 4 completed Not Available [facility] 04/12/2022 08:12:28 Hep B, adult 4 completed Not Available [facility] 04/12/2022 08:12:28 MMR 4 completed Not Available [facility] 04/12/2022 08:12:28 IPV 4 completed Not Available [facility] 04/12/2022 08:12:29 Hep B, adult 4 completed Not Available [facility] 04/12/2022 08:12:29 Tdap 3 completed Not Available [facility] 04/12/2022 08:12:29 Past Encounters Encounter ID Performer Location Encounter Start Date Encounter Closed Date Diagnosis/Indication Diagnosis SNOMED-CT Code Diagnosis ICD10 Code Diagnosis Note [id number] Jaciel Lovelace MD [facility] [address] [address] 01/08/2023 15:10:59 01/08/2023 15:59:37 Adult health examination 587591803 Z00.00 Hypothyroidism 10547619 E03.9 Vitamin D deficiency 347 [address]859 E55.9 Diabetes m ellitus screening 147563406 Z13.1 Ex-smoker 3214287 Z87.89 1 Anxiety disorder F41.9 Chronic insomnia 7488154 04 F51.04 [id number] Jaciel Lovelace MD [facility] [address] [place] [address] 01/31/2023 16:47:12 01/31/2023 17:11:41 Hypothyroidism 37863327 E03.9 Vitamin D deficiency 347 03610 E55.9 Improved Ex-smoker 3830750 Z87.89 1 Anxiety disorder F41.9 Chronic insomnia 5187251 04 F51.04 Hyperlipidemia 41794523 E78.5 Health Concerns Section Related Observation LastModified by Organization Detai ls LastModified Time None Recorded Concern Status LastModified by Organization Details LastModified Time None Recorded Advance Directives Directive N: Payers Insurance Date Sequence Insurance Name Policy Number Policy Nguyen Covered Member ID Nguyen Member ID Guarantor Name 07/30/2023 1 [facility] [id number] Zeb Garcia [id number] Hazel Fran Garcia Notes Date Note Type Note Provider Name and Address Organization Details Recorded Time 01/08/2023 text/html New pt visit. Pt is here for her annual exam and has some concerns. Pt has not seen any PCP for last several years. Pt is f/u with [facility] at [facility] [place]. C/o feeling anxious everyday since covid and [...] FH and SH reviewed. Jaciel Lovelace MD [address] [place] [address], [address] [address], [place], [address], [facility] [employer] 01/08/2023 15:58:08 01/31/2023 text/html Pt is here for f/u on her annual labs. Doing overall much better than last visit. Denies any problem with meds. Pt is f/u with Endo at [facility] [place]. C/o feeling anxious everyday since covid and she has not tried any med for it. For last few months, its bothering her more and she wants to try a med for it. Denies any mood swings/SI/HI. C/o not able to get enough sleep for last few yrs. Pt has tried otc meds for this, but its not helping her. Jaciel Lovelace MD [address] [facility], [facility] [address], [place], [address], [facility] [employer] 01/31/2023 17:10:29 OBGyn Episode Ob Episode Information Episode Created Date Number of Fetuses Patient Bloodtype Patient rh Status Prepregnancy Weight lbs Domestic Partner Domestic Partner Phone Father Name Operations Asst Status 01/09/20 23 1 CLOSED Fetus Data [...] Domestic Partner Domestic Partner Phone Father Name Operations Asst Status 01/09/20 23 1 CLOSED Fetus Data [...]
--- OUTSIDE RECORDS SUMMARY | 2024-07-25 09:04 | XMS_ITS | Clinical Summary ---
Author Organization [facility] Address [address] [place] [address] Care Team Providers Care Turbinated Bone Grinder Name Role Phone Unavailable Primary Care Provider Unavailabl e Source Comments [facility] [employer],[facility] Affiliates and Associated Physician Practices is amultiple site organization consisting of ambulatory clinics and hospital sitesin [place], [place], [place] and [place]. This disclosure is being madepursuant to the Care Everywhere program and may not contain all information available regarding this patient. Last updated 17.[facility] [employer] Social History Tobacco Use Types Packs/Day Years [...] patient's age to complete this topic Insurance [facility]
--- OUTSIDE RECORDS SUMMARY | 2024-07-25 09:04 | XMS_ITS | Referral Summary ---
Author Organization [facility] [address] [place] [address] Care Team Providers Care Still Operator Whiskey Name Role Phone Do Duron MD Primary Care Provider [phone] Encounters Date Type Department Care Team Description 07/09/2024 Results Follow-Up [facility] [address] [address] Janette Contreras MD Vitamin D 25 hydroxy, TSH, Lipid panel 07/04/2024 Orders Only [facility] [address] [address] Janette Contreras MD 07/02/2024 3:00 PM CDT Office Visit [facility] [address] [address] Janette Contreras MD Hypothyroidism due [...] 100 tablet 3 07/11/19 25 Active thyroid (Peralta Thyroid) 60 mg tabletIndicatio ns:Hypothyroidi sm due [...] EACH NOSTRIL DAILY 02/18/19 025 Discontinued(Ot her) Peralta Thyroid 60 mg tabletIndicatio ns:Hypothyroidi sm due [...] tablet 3 07/10/19 025 Discontinued(Re order) thyroid (Peralta Thyroid) 60 mg tabletIndicatio ns:Hypothyroidi sm due [...] Will adjust dose of levothyroxine and or Peralta thyroid accordingly Assessment & Plan (10/25/2021 3:43 PM CDT): Recheck TSH, free T4 and free T3 I emphasized to the patient the importance of taking her medication regularly Will make adjustment, if indicated Follow-up in in 6 months Assessment & Plan (10/26/2020 3:39 PM CDT): Thyroid function tests, including TSH and free T4 were requested Will adjust dose of Peralta, if indicated Assessment & Plan (10/21/2019 3:34 PM CDT): Continue Peralta to current dose Check TSH Assessment & Plan (11/28/2018 3:00 PM CDT): Will check TSH and free T4 Will adjust dose of Peralta, acccordingly . If there is a need to make changes, will recheck levels in 2-3 months. Instructions to patient on taking medication properly Assessment & Plan (09/04/2017 9:41 AM CDT): Your goal of treatment is to keep TSH , T3 and T4 within normal range. . Will recheck thyroid function tests and will advised on adjustment to current dose of Peralta. Assessment & Plan (08/21/2016 9:50 AM CDT): Check TSH, free T4 Will try Peralta , as per patient request Recheck levels [...] NOS Assessment & Plan (04/08/2019 4:54 PM PEDIATRIC INTENSIVE PHYSICIAN): Check TFT Adjust dose of Peralta accordingly Anemia 06/28/2013 Overview (05/19/2016): ANEMIA NOS [...] on file Legal Sex Female 3:05 AM PEDIATRIC INTENSIVE PHYSICIAN Gender Identity Not on file Sexual Orientation [...] D 25 hydroxy (07/04/2024 3:18 PM CDT) [facility] Vitamin D, 25-Hydroxy 50.0 30.0 - 100.0 ng/mL [facility] - 01 Comment: Vitamin D deficiency has been defined by the [place] of Medicine and an Endocrine Society practice guideline as a level of serum 25-OH vitamin D less than 20 ng/mL (1,2). The Endocrine Society went on to further define vitamin D insufficiency as a level between 21 and 29 ng/mL (2). 1. IOM ([place] of Medicine). 2010. Dietary reference intakes for calcium and D. [place]: The National Academies Press. 2. Leonard LOFTON, Maurice HUIZAR, Shagufta ROCHA, et al. Evaluation, treatment, and prevention of vitamin D deficiency: an Endocrine Society clinical practice guideline. JCEM. 2010; 96(7):1911-30. 07/04/2024 3:18 PM CDT 07/04/2024 Narrative [facility] - 07/05/2024 7:09 AM CDT Performed at: [address] [place] [id number] Administrative Underwriter: Dickson Higgins PhD, Phone: [phone] Janette Contreras MD LAB BLOOD ORDERABLES Final Resul t Performing Organization Address [facility] de Phone Number [facility] - 01 * T3, free (07/04/2024 3:18 PM CDT) Triiodothyronin e,Free,Serum 2.9 2.0 - 4.4 pg/mL [facility] - 01 07/04/2024 3:18 PM CDT 07/04/2024 Narrative [facility] - 07/05/2024 8:11 AM CDT Performed at: [address] [place] [id number] Administrative Underwriter: Dickson Higgins PhD, Phone: [phone] us Janette Contreras MD LAB BLOOD ORDERABLES Final Resul t Performing Organization Address [facility] Phone Number [facility] - * (ABNORMAL) TSH (07/04/2024 3:18 PM CDT) TSH 7.650(H) 0.450 - 4.500 uIU/mL [facility] - 01 07/04/2024 3:18 PM CDT 07/04/2024 Narrative [facility] - 07/05/2024 8:11 AM CDT Performed at: [facility] [employer] [id number] Administrative Underwriter: Dickson Higgins PhD, Phone: [phone] us Janette Contreras MD LAB BLOOD ORDERABLES Final Resul t Performing Organization Address [facility] de Phone Number [facility] - 01 * T4, free (07/04/2024 3:18 PM CDT) T4,Free(Direct) 1.05 0.82 - 1.77 ng/dL [facility] - 01 07/04/2024 3:18 PM CDT 07/04/2024 Narrative [facility] - 07/05/2024 8:11 AM CDT Performed at: [address] [id number] Administrative Underwriter: Dickson Higgins PhD, Phone: [phone] Janette Contreras MD LAB BLOOD ORDERABLES Final Resul t Performing Organization Address [facility] Co de Phone Number [facility] - [...] - 07/05/2024 7:09 AM CDT Performed at: [address] [id number] Administrative Underwriter: Dickson Higgins PhD, Phone: [phone] Janette Contreras MD LAB BLOOD ORDERABLES Final Resul t [facility] - 01 from Last 3 Months Insurance [facility] [employer] PLUS [facility] [employer] [place] [address] [facility] [employer] PLUS Care Teams Still Operator Whiskey Relationship Specialty Start Date End Date Do Duron MD [address] [address] PCP - General 12/21/15
== END 2024-07-25 09:01 | disposition home or self-care (01) ==
LOC: CHSIMG 09:01
PROVIDERS: PCP Nurse Practitioner Obstetrics & Gynecology; Visit Provider Nurse Practitioner Obstetrics & Gynecology
DX: R92.8 Other abnormal and inconclusive findings on diagnostic imaging of breast (principal)
CPT/HCPCS: 76642; 77062; 77066; G0279

== ENCOUNTER 2025-01-30 08:40 | Outpatient (CLI) | payer OTHER, SELFPAY ==
--- NOTE | ~2025-01-30 | US_ITS ---
EXAMINATION: US breast LT limited INDICATION: 64-year old female; BI-RADS 3, short-term follow-up probably benign left breast mass. COMPARISON: 07/25/2024 TECHNIQUE: Targeted sonographic evaluation of the lower inner LEFT breast was completed. FINDINGS: A 0.52 x 0.54 x 0.48 cm Hypoechoic mass at 7:00, periareolar location in the LEFT breast redemonstrated is unchanged. IMPRESSION: Probably benign Hypoechoic LEFT breast mass has demonstrated 6 months stability since initial evaluation on 07/25/2024. RECOMMENDATION: 6 month follow-up diagnostic BILATERAL mammogram and LEFT breast ultrasound. BI-RADS category 3, probably benign findings. Reviewed, dictated and finalized at location A. S ACCOUNT COORDINATOR IMPRESSION: Probably benign Hypoechoic LEFT breast mass has demonstrated 6 months stabilit y since initial evaluation on 07/25/2024. RECOMMENDATION: 6 month follow-up diagnostic BILATERAL mammogram and LEFT breas t ultrasound. BI-RADS category 3, probably benign findings.
--- OUTSIDE RECORDS SUMMARY | 2025-01-30 08:49 | XMS_ITS | Clinical Summary ---
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 Take 1 tablet by mouth daily but 2 tablets on Sundays 100 tablet 3 07/10/2024 Active thyroid ([place] Thyroid) 60 mg tabletIndication s: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 Take 1 tablet (60 mg total) by mouth daily 90 tablet 3 07/10/2024 Active Active Problems Problem Noted Date Diagnosed Date [...] Will adjust dose of levothyroxine and or [place] thyroid accordingly Assessment & Plan (10/25/2021 3:43 PM CDT): Recheck TSH, free T4 and free T3 I emphasized to the patient the importance of taking her medication regularly Will make adjustment, if indicated Follow-up in in 6 months Assessment & Plan (10/26/2020 3:39 PM CDT): Thyroid function tests, including TSH and free T4 were requested Will adjust dose of [place], if indicated Assessment & Plan (10/21/2019 3:34 PM CDT): Continue [place] to current dose Check TSH Assessment & Plan (11/28/2018 3:00 PM CDT): Will check TSH and free T4 Will adjust dose of [place], acccordingly . If there is a need to make changes, will recheck levels in 2-3 months. Instructions to patient on taking medication properly Assessment & Plan (09/04/2017 9:41 AM CDT): Your goal of treatment is to keep TSH , T3 and T4 within normal range. . Will recheck thyroid function tests and will advised on adjustment to current dose of [place]. Assessment & Plan (08/21/2016 9:50 AM CDT): Check TSH, free T4 Will try [place] , as per patient request Recheck levels [...] NOS Assessment & Plan (04/08/2019 4:54 PM PSYCHIATRIC SOCIAL WORKER): Check TFT Adjust dose of [place] accordingly Anemia 06/28/2013 Overview (05/19/2016): ANEMIA NOS Lymphocytic thyroiditis 06/28/2013 Overview (05/19/2016): CHR LYMPHOCYT THYROIDIT Metabolic bone disease 10/31/2011 Overview (05/19/2016): Bone disease, metabolic Resolved Problems Problem Noted Date Diagnosed Date Resolved Date Tobacco dependence syndrome 10/31/2011 09/04/2017 Overview (05/19/2016): Tobacco use disorder Surgical History Surgery Date Site/Laterality Comments REDUCTION [...] on file Legal Sex Female 3:05 AM PSYCHIATRIC SOCIAL WORKER Gender Identity Not on file Sexual Orientation [...] 10/21/2019, 04/08/2019, Additional history exists Influenza Vaccine (#1) 2024 7, 02/19/2014, 02/22/2012 Hepatitis B Screening Completed 04/14/2014 , 10/14/2013, 09/01/2013 Zoster Vaccine Completed 03/18/2018, 11/27/2017 Pneumococcal vaccine <65 Aged Out No longer eligible based on patient's age to complete this topic Procedures Procedure Name Priority Date/Time Associated Diagnosis Comments T4, FREE Routine 11/24/2024 12:10 PM CDT 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 TSH Routine 11/24/2024 12:10 PM CDT 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 from Last 3 Months Results * (ABNORMAL) TSH (11/24/2024 12:10 PM CDT) TSH 0.433(L) 0.450 - 4.500 uIU/mL [facility] - 01 Blood 11/24/2024 12:1 0 PM CDT 11/24/2024 Narrative [facility] - 11/25/2024 11:11 AM CDT Performed at: [address] [place] [id number] Laserist: Dickson Higgins PhD, Phone: [phone] Janette Contreras MD LAB BLOOD ORDERABLES Final Resul t Performing Organization Address [facility] de Phone Number [facility] - * T4, free (11/24/2024 12:10 PM CDT) T4,Free(Direct) 1.32 0.82 - 1.77 ng/dL [facility] - 01 Blood 11/24/2024 12:1 0 PM CDT 11/24/2024 Narrative [facility] - 11/25/2024 11:11 AM CDT Performed at: [address] [place] [id number] Laserist: Dickson Higgins PhD, Phone: [phone] Janette Contreras MD LAB BLOOD ORDERABLES Final Resul t Performing Organization Address [facility] Co de Phone Number [facility] - from Last 3 Months Insurance [facility] CHOICE PLUS [facility] CHOICE PLUS WORKERS COMPENSATION GENERIC Member Subscriber Plan / Payer (Ef fective 2020-Present) Name:Hazel Garcia Relation to Subscriber:Self Name:Jose Hazel Fran Payer ID:[id number] Group ID:Not on file Type:WORKERS COMPENSATION Address: [address] [id number] [facility] CHOICE PLUS Care Teams Roof Bolter Operator Relationship Specialty Start Date End Date oD Duron MD [address] [address] PCP - General 12/21/15
--- OUTSIDE RECORDS SUMMARY | 2025-01-30 08:49 | XMS_ITS | Clinical Summary ---
Author Organization [facility] Address [address] [place] [address] Care Team Providers Care Education Assistant Name Role Phone Do Duron MD Primary Care Provider [phone] Allergies No known active allergies Medications thyroid (ARMOUR) 60 MG OR tablet Take 1 tablet (60 mg total) by mouth daily. 10/29/2021 Active estradiol (ESTRACE) 0.5 MG tablet Take 1 tablet (0.5 mg total) by mouth daily. Active acetaminophen (TYLENOL) 500 MG tablet Take 2 tablets (1,000 mg total) by mouth every 6 (six) hours as needed for Pain. Active levothyroxine (SYNTHROID) 25 MCG tablet Take 1 tablet (25 mcg total) by mouth every morning. Active APPLE CIDER VINEGAR OR Take 2 tablets by mouth daily. Active Bilberry, Vaccinium myrtillus, (BILBERRY OR) Take 3 capsules by mouth daily. Active magnesium oxide (MAG-OX) 250 MG tablet Take 1 tablet (250 mg total) by mouth daily. Active Active Problems No known active problems Family History Medical History Relation Comments Cancer Father Heart Disease Father Lung Disease Father Breast Cancer Mother Cancer Mother breast cancer Relation Status Comments Father (Age 60s) of lung cancer Mother (Age 73) of blood clot traveling to [place] r/t breast cancer Social History Tobacco Use Types Packs/Day Years Used Date Smoking Tobacco: Former Cigarettes 1.5 25 1 - 2009 Smokeless Tobacco: Never Alcohol Use Standard Drinks/Week Comments Yes 0 (1 standard drink = 0.6 oz pur e alcohol) couple drinks a month Comments No Sex and Gender Information Value Date Recorded Sex Assigned at Not on file Legal Sex Female 2:16 PM CDT Gender Identity Not on file Sexual Orientation Not on file Last Filed Vital Signs Vital Sign Reading Time Taken Comments Blood Pressure 144/89 11/20/2023 10:00 AM CDT Pulse 53 11/20/2023 10:00 AM CDT Temperature 36.3 C (97.4 F) 11/20/2023 10:00 AM CDT Respiratory Rate 18 11/20/2023 10:00 AM CDT Oxygen Saturation 96% 11/20/2023 10:00 AM CDT Inhaled Oxygen Concentration - - Weight 65 kg (143 lb 4.8 oz) 11/20/2023 6:30 AM CDT Height 160 cm (5' 3) 11/20/2023 6:30 AM CDT Body Mass Index 25.38 11/20/2023 6:30 AM CDT Plan of Treatment Health Maintenance Due Date Last Done Comments Colorectal Cancer Screening Colonoscopy (10 Years) 1961 Annual Physical 1964 Hepatitis C 06/24/1979 Pneumococcal Vaccine: 50+ Years (1 of 1 - PCV) 06/24/2011 Mammogram Screening 06/25/2015 06/24/2013, 3 DTaP, Tdap and Td Vaccines (2 - Td or Tdap) 10/25/2022 10/25/2012 COVID-19 Vaccine ( season) 2024 08/04/2021, 11/27/2020, 03/19/2020, Additional history exists Influenza Adult (#1) 2024 11/13/2016, 02/19/2014, 02/22/2012 RSV Immunization or 60+ Years (1 - 1-dose 75+ series) 2036 Zoster Vaccines Completed 03/18/2018, 11/27/2017 Hepatitis A Vaccines Aged Out No long er eligible based on patient's age to complete this topic Meningococcal B Vaccine Aged Out No l onger eligible based on patient's age to complete this topic Meningococcal Vaccine Aged Out No mathew pepe eligible based on patient's age to complete this topic RSV Immunizations Under 20 Months Aged Out No longer eligible based on patient's age to complete this topic Medical Devices Implanted Type Area Cdl Dedicated Truck Driver Device Identifier Shelf Expiration Date Model / Serial / Lot Wire Fixation [employer] L9 In Od.045 In 2 Tr - [id number] Implanted:Qty: 1 on 11/29/2021 by David Salvador DPM at [facility] Wire Left: Toe [employer] [id number] / / Explanted Type Area Cdl Dedicated Truck Driver Device Identifier Shelf Expiration Date Model / Serial / Lot Screw Implanted:Qty: 1 on 11/29/2021 by David Salvador DPM at [facility] Explanted:Qty: 1 on 11/20/2023 by David Salvador DPM at [facility] Left: Toe [employer] DOROTHY -2010 / / Insurance [facility] Care Teams Education Assistant Relationship Specialty Start Date End Date Do Duorn MD [address], [place] [address] PCP - General FAMILY PRACTICE 11/23/21
--- OUTSIDE RECORDS SUMMARY | 2025-01-30 08:49 | XMS_ITS | Encounter Summary ---
Author Organization [facility] Address [address] [place] [address] Care Team Providers Care Toy Parts Former Supervisor Name Role Phone Unavailable Primary Care Provider Unavailabl e Encounter Details Date Type Department Care Team (Late st Contact Info) Description 04/27/2021 Lab Requisition [facility] DermPath Lab [address] [place] [id number] Binh Nguyen MD [address] [place] [id number] Social History Tobacco Use Types Packs/Day Years [...] AM CDT) Case Report Dermatopathology Report Case: [id number] Authorizing Provider: Binh Nguyen MD Collected: 04/26/2021 12:00 AM Ordering Location: [facility] DermPath Lab Received: 04/27/2021 03:09 PM Pathologist: Jessy Neville MD Specimen: Skin, left lateral cheek 2 3:52 PM CDT DERMATOPATHOLOGY LABORATORY Final Diagnosis Specimen A. 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 Path # [id number]. 2 3:52 PM T DERMATOPATHOLOGY LABORATORY Gross Description Specimen A: Received is one formalin filled container labeled with the patient's name and designated left lateral cheek. The specimen consists of a shave biopsy measuring [id number]. Jar 0. 2 3:52 PM T DERMATOPATHOLOGY LABORATORY Microscopic Description Specimen A. SKIN, [...] larger lesion, these findings may not be financial services sales representative of the entire lesion. Clinicopathologic correlation is recommended. 2 3:52 PM T DERMATOPATHOLOGY LABORATORY Disclaimer An external and internal positive and negative controls are appropriate for the histochemical, immunohistochemical and immunofluorescence stain(s) in this case (if any), except where stated explicitly. The performance characteristics of the stain(s) cited in this report were developed and its performance characteristic determined by the Dermatopathology Laboratory at [facility], directed by Dr. Danny Orellana. These tests need not be, and therefore are not, approved by the [place] Food and Drug Administration. The tests are used for clinical purposes. Billing Codes Specimen Charges Stain Charges 13213 1 57851 1 2 3:52 PM CDT DERMATOPATHOLOGY LABORATORY Embedded Images 2 3:52 PM CDT DERMATOPATHOLOGY LABORATORY Pathology/Cytolog y TISSUE SPECIMEN FROM SKIN / Unknown 04/26/2021 04/27/2021 3:09 PM CDT us Binh Nguyen MD LAB - PATHOLOGY/CYTOLOGY ORDER AKSHAT Final Result DERMATOPATHOLOGY LABORATORY [facility] - Department of Dermatology [address] [phone] documented in this encounter Visit Diagnoses Not on filedocumented in this encounter
--- OUTSIDE RECORDS SUMMARY | 2025-01-30 08:49 | XMS_ITS | Clinical Summary ---
[facility] [place] Address [address] [place] [address] Phone Care Team Providers Care Cinder Crew Worker Name Role Phone Do Duron MD Primary Care Provider [phone] Allergies No known active allergies Medications CALCIUM [...] Duron MD Referring Provider: Ruchi Lao MD [address] [facility] [address] [place] [address] Other: Problem Noted Date Diagnosed Date Fibrocystic breast changes 10/06/2013 Family history of breast cancer 09/02/2013 Breast nodule 08/25/2013 Larry's thyroiditis Family History Medical History Relation Name Comments Lung Cancer Father Breast Cancer Mother Relation Name Status Comments Father Mother Social History Tobacco Use Types Packs/Day Years Used Date Smoking Tobacco: Former Cigarettes 32 0 11/03/1980 - 11/03/2012 Smokeless Tobacco: Never [...] SCREENING 06/24/2014 06/24/2013, 05/29 INFLUENZA VACCINE (#1) 2024 RSV VACCINE (60+ or ) (1 - 1-dose 75+ series) 2036 Procedures Procedure Name Priority Date/Time Associated Diagnosis Comments MAMMO SCREEN BILAT W OR WO CAD Routine 06/24/2013 from Last 3 Months or Most Recently Relevant to Health Maintenance Results * MAMMO DIGITAL SCREEN BILAT (06/24/2013) Anatomical Region Laterality Modality Breast Bilateral Other Ruchi Lao MD MAMMO ORDERABLES Final R esult from Last 3 Months or Most Recently Relevant to Health Maintenance Insurance OPTIONS PPO [id number] [facility] Address: [facility] [id number] [place] [address] Advance Directives For more information, please contact: [phone] * Full Code (Latest Code Status on File) Date Activated Date Inactivated Comments 09/25/2013 8:56 AM 09/25/2013 12:55 PM Care Teams Cinder Crew Worker Relationship Specialty Start Date End Date Do Duron MD [address] [place] [address] PCP - General 01/29/15
--- OUTSIDE RECORDS SUMMARY | 2025-01-30 08:49 | XMS_ITS | Clinical Summary ---
Author Organization [facility] Address [address] [facility] [place] [address] Care Team Providers Care School Secretary Name Role Phone Unavailable Primary Care Provider Unavailabl e Source Comments [facility],non[facility] Affiliates and Associated Physician Practices is amultiple site organization consisting of ambulatory clinics and hospital sitesin [place], [place], [place] and [place]. This disclosure is being madepursuant to the Care Everywhere program and may not contain all information available regarding this patient. Last updated 17.[facility] Social History Tobacco Use Types Packs/Day Years [...] 06/24/2011 ZOSTER VACCINE (1 of 2) 06/24/2011 DEPRESSION SCREENING 02/13/2024 COVID-19 VACCINE (1 - 2024-2 6 season) 2024 INFLUENZA VACCINE (#1) 2024 Respiratory Syncytial Virus (RSV) Vaccine Pt: [...] patient's age to complete this topic Insurance [facility]
== END 2025-01-30 08:41 | disposition home or self-care (01) ==
PROVIDERS: PCP Nurse Practitioner Obstetrics & Gynecology; Visit Provider Nurse Practitioner Obstetrics & Gynecology
DX: R92.8 Other abnormal and inconclusive findings on diagnostic imaging of breast (principal)
CPT/HCPCS: 76642